=== PATIENT | male | born 1980 | race Caucasian/White ===

== ENCOUNTER 2021-02-16 19:00 | Outpatient (CLI) | payer BC | END 2021-02-16 19:01 | disposition home or self-care (01) | LOC: SLEEPLAB 19:00 | PROVIDERS: ATTEND Family Medicine | DX: G47.33 Obstructive sleep apnea (adult) (pediatric) (principal); R53.83 Other fatigue; G47.00 Insomnia, unspecified; R06.83 Snoring; G47.10 Hypersomnia, unspecified; I10 Essential (primary) hypertension; E66.9 Obesity, unspecified; Z68.41 Body mass index [BMI] 40.0-44.9, adult | CPT/HCPCS: 95810 ==

== ENCOUNTER 2021-03-20 19:00 | Outpatient (CLI) | payer BC | END 2021-03-20 19:01 | disposition home or self-care (01) | LOC: SLEEPLAB 19:00 | PROVIDERS: ATTEND Family Medicine | DX: G47.33 Obstructive sleep apnea (adult) (pediatric) (principal); R53.83 Other fatigue; G47.10 Hypersomnia, unspecified; I10 Essential (primary) hypertension; R06.83 Snoring; E66.9 Obesity, unspecified; Z68.41 Body mass index [BMI] 40.0-44.9, adult | CPT/HCPCS: 95811 ==

== ENCOUNTER 2022-05-15 15:17 | Outpatient (CLI) | payer BC ==
[2022-05-15 17:55] LABS: #Eosinphils 0.3 10x3/uL (0.0-0.5); #Monocytes 0.3 10x3/uL (0.0-1.1); #Neutrophils 1.6 10x3/uL (1.5-8.4); %Basophils 1.1 % (0.0-2.0); %Lymphocytes 18.6 % (18.0-47.0); %Monocytes 10.6 % (0.0-10.0); %Neutrophils 57.7 % (40.0-75.0); Hemoglobin 11.6 g/dL (13.5-17.5); Mean Corpuscular HGB CONC 33.6 g/dL (32.0-36.0); Mean Corpuscular Hemoglobin 30.2 pg (27.0-33.0); Mean Corpuscular Volume 89.8 fl (81.2-95.1); Mean Platelet Volume 12.1 fl (7.4-10.4); Platelet Count 45 10x3/uL (150-450); RBC Distribution Width 14.8 % (11.5-14.5); Red Blood Cell (RBC) Count 3.84 10x6/uL (4.32-5.72); White Blood Cell (WBC) Count 2.7 10x3/uL (3.5-10.5)
[2022-05-15 18:02] LABS: Anion Gap 10 mmol/L (10-20); BUN (Urea Nitrogen) 12 mg/dL (8.9-20.6); Calc. Creatinine Clearance 0 mL/min (70-130); Calcium 8.1 mg/dL (7.8-10.44); Carbon Dioxide 25 mmol/L (22-29); Chloride 107 mmol/L (98-107); Estimated GFR 78; Glucose 108 mg/dL (70-105); Potassium 4.1 mmol/L (3.5-5.1); Sodium 138 mmol/L (136-145)
== END 2022-05-15 15:18 | disposition home or self-care (01) ==
LOC: LABBT 15:17
PROVIDERS: ATTEND Surgery
DX: Z01.818 Encounter for other preprocedural examination (principal); K43.9 Ventral hernia without obstruction or gangrene
CPT/HCPCS: 80048; 85025; 93005; 93010

== ENCOUNTER 2022-05-20 07:18 | Day surgery (SDC) | payer BC ==
[2022-05-19 14:04] VITALS: BMI 41.5
== END 2022-05-20 08:34 | disposition home or self-care (01) ==
LOC: SDC 07:18
PROVIDERS: ATTEND Surgery
DX: K42.9 Umbilical hernia without obstruction or gangrene (principal); D69.6 Thrombocytopenia, unspecified; E78.5 Hyperlipidemia, unspecified; J45.20 Mild intermittent asthma, uncomplicated; K21.9 Gastro-esophageal reflux disease without esophagitis; F17.290 Nicotine dependence, other tobacco product, uncomplicated; E66.9 Obesity, unspecified; Z68.41 Body mass index [BMI] 40.0-44.9, adult; Z53.09 Procedure and treatment not carried out because of other contraindication; Z79.01 Long term (current) use of anticoagulants; Z79.84 Long term (current) use of oral hypoglycemic drugs; Z79.899 Other long term (current) drug therapy; Z91.011 Allergy to milk products

== ENCOUNTER 2022-07-15 08:14 | Day surgery (SDC) | payer BC ==
[2022-07-15] MEDS ORDERED: diphenhydrAMINE 25 MG CAP PO SCH (08:30)
[2022-07-15] MEDS ORDERED: Acetaminophen 500 MG TAB PO SCH (08:30)
[2022-07-15] MEDS ORDERED: Acetaminophen 500 MG TAB ONE (08:31)
[2022-07-15] MEDS ORDERED: diphenhydrAMINE 25 MG CAP ONE (08:31)
[2022-07-15 16:05] VITALS: BP 143/78; TEMP 98.3
== END 2022-07-15 10:58 | disposition home or self-care (01) ==
LOC: ONC/OP 08:14
PROVIDERS: ATTEND Internal Medicine Hematology & Oncology
PROC: 30233R1 Transfusion of Nonautologous Platelets into Peripheral Vein, Percutaneous Approach (ICD-10-PCS; principal; 2022-07-15)
DX: D69.6 Thrombocytopenia, unspecified (principal); D64.9 Anemia, unspecified; Z91.011 Allergy to milk products
CPT/HCPCS: 36430; 86850; 86900; 86901; P9035

== ENCOUNTER 2022-07-15 11:07 | Day surgery (SDC) | payer BC ==
[2022-07-11 15:33] VITALS: BMI 40.7
[2022-07-15] MEDS ORDERED: Bupivacaine/Epinephrine 0.25% 30 ML VIAL ONE (12:40)
[2022-07-15] MEDS ORDERED: fentaNYL PF 100 MCG/2 ML SYRINGE ONE (12:41)
[2022-07-15] MEDS ORDERED: PROPOFOL 20 ML ONE (12:41)
[2022-07-15] MEDS ORDERED: SUGAMMADEX SODIUM 200 MG/2 ML VIAL ONE (12:41)
[2022-07-15] MEDS ORDERED: CEFAZOLIN 2 GM VIAL ONE (12:48)
[2022-07-15] MEDS ORDERED: Sodium Chloride 0.9% 100 ML ONE (12:48)
[2022-07-15] MEDS ORDERED: PROPOFOL 200 MG/20 ML VIAL ONE (13:04)
[2022-07-15] MEDS ORDERED: Lidocaine 1% PF 5 ML VIAL ONE (13:04)
[2022-07-15] MEDS ORDERED: Dexamethasone 20 MG/5 ML VIAL ONE (13:04)
[2022-07-15] MEDS ORDERED: Albuterol HFA (OR) 200 PUFF INH ONE (13:04)
[2022-07-15] MEDS ORDERED: ePHEDrine 50 MG/ML VIAL ONE (13:04)
[2022-07-15] MEDS ORDERED: Ondansetron PF 4 MG/2 ML Vial ONE (13:04)
[2022-07-15] MEDS ORDERED: Rocuronium Bromide 10 MG/ML (10ML VIAL) ONE (13:04)
[2022-07-15] MEDS ORDERED: Glycopyrrolate 0.2 MG/ML 5 ML SYRINGE ONE (13:04)
[2022-07-15] MEDS ORDERED: NEOSTIGMINE 3 MG/3 ML SYR 3 MG/3 ML SYRINGE ONE (13:04)
[2022-07-15 13:15] LABS: #Eosinphils 0.3 thou/uL (0.0-0.7); #Lymphocytes 0.5 thou/uL (1.20-3.40); #Monocytes 0.2 thou/uL (0.11-0.59); #Neutrophils 1.2 thou/uL (1.40-6.50); %Eosinophils 12.4 % (0.0-10.0); %Lymphocytes 21.2 % (21.0-51.0); %Monocytes 9.1 % (0.0-10.0); %Neutrophils 57.2 % (42.0-75.0); Hemoglobin 11.3 g/dL (14.0-18.0); Mean Corpuscular HGB CONC 33.9 g/dL (32.0-36.0); Mean Corpuscular Hemoglobin 30.8 pg (27.0-31.0); Mean Corpuscular Volume 90.9 fl (78.0-98.0); Mean Platelet Volume 9.8 fL (7.4-10.4); Platelet Count 42 10x3/uL (130-400); RBC Distribution Width 13.9 % (11.5-14.5); Red Blood Cell (RBC) Count 3.67 mill/uL (4.70-6.10); White Blood Cell (WBC) Count 2.1 10x3/uL (4.8-10.8)
[2022-07-15 13:38] LABS: Anion Gap 8 mmol/L (10-20); BUN (Urea Nitrogen) 14 mg/dL (8.9-20.6); Calc. Creatinine Clearance 132 mL/min (70-130); Calcium 8.4 mg/dL (7.8-10.44); Carbon Dioxide 30 mmol/L (22-29); Chloride 106 mmol/L (98-107); Estimated GFR 67; Glucose 91 mg/dL (70-105); Potassium 4.4 mmol/L (3.5-5.1); Sodium 140 mmol/L (136-145)
[2022-07-15] MEDS ORDERED: FENTANYL 50 MCG/ML 1 ML VIAL ONE ×3 (14:52→15:13)
[2022-07-15] MEDS ORDERED: HYDROcodone/Acetaminophen 5/325 mg Tablet ONE (16:13)
== END 2022-07-15 16:23 | disposition home or self-care (01) ==
LOC: SDC 11:07
PROVIDERS: ATTEND Surgery
PROC: 8E0W4CZ Robotic Assisted Procedure of Trunk Region, Percutaneous Endoscopic Approach (ICD-10-PCS; principal; 2022-07-15)
PROC: 0WUF4JZ Supplement Abdominal Wall with Synthetic Substitute, Percutaneous Endoscopic Approach (ICD-10-PCS; principal; 2022-07-15)
DX: K43.9 Ventral hernia without obstruction or gangrene (principal); D69.6 Thrombocytopenia, unspecified; E78.5 Hyperlipidemia, unspecified; J45.20 Mild intermittent asthma, uncomplicated; F17.290 Nicotine dependence, other tobacco product, uncomplicated; E66.9 Obesity, unspecified; Z68.41 Body mass index [BMI] 40.0-44.9, adult; Z86.718 Personal history of other venous thrombosis and embolism; Z79.84 Long term (current) use of oral hypoglycemic drugs; Z79.899 Other long term (current) drug therapy; Z91.011 Allergy to milk products
CPT/HCPCS: 36430; 80048; 85025; 86850; 86900; 86901; C1781; J1100; J2405; J2704; J3010; J3490; P9035

== ENCOUNTER 2022-12-08 12:17 | Inpatient (IN) | payer BC ==
[~2022-12-08 12:17] MED LIST: Iopamidol-370 76% 500 ML MDV (1 ML CHARGE) ONE
[2022-12-08 12:45] LABS: #Basophils 0.1 thou/uL (0.0-0.2); #Eosinphils 0.6 thou/uL (0.0-0.7); #Monocytes 0.6 thou/uL (0.11-0.59); #Neutrophils 5.8 thou/uL (1.40-6.50); %Basophils 1.4 % (0.0-1.0); %Eosinophils 7.4 % (0.0-10.0); %Monocytes 7.3 % (0.0-10.0); %Neutrophils 67.6 % (42.0-75.0); Hematocrit 37.4 % (42.0-52.0); Hemoglobin 12.1 g/dL (14.0-18.0); Mean Corpuscular HGB CONC 32.4 g/dL (32.0-36.0); Mean Corpuscular Hemoglobin 28.7 pg (27.0-31.0); Mean Corpuscular Volume 88.6 fl (78.0-98.0); Mean Platelet Volume 9.9 fL (7.4-10.4); RBC Distribution Width 16.4 % (11.5-14.5); Red Blood Cell (RBC) Count 4.22 mill/uL (4.70-6.10); White Blood Cell (WBC) Count 8.6 10x3/uL (4.8-10.8)
[2022-12-08 12:47] LABS: Platelet Count 56 10x3/uL (130-400)
[2022-12-08 13:05] LABS: ALT (SGPT) 25 U/L (8-55); AST (SGOT) 30 U/L (5-34); Albumin 3.2 g/dL (3.5-5.0); Alkaline Phosphatase 81 U/L (40-110); Anion Gap 14 mmol/L (10-20); BUN (Urea Nitrogen) 21 mg/dL (8.9-20.6); Bilirubin, Total 1.5 mg/dL (0.2-1.2); Calc. Creatinine Clearance 0 mL/min (70-130); Carbon Dioxide 29 mmol/L (22-29); Chloride 99 mmol/L (98-107); Estimated GFR 38; Globulin 2.7 g/dL (2.4-3.5); Glucose 131 mg/dL (70-105); Potassium 4.9 mmol/L (3.5-5.1); Protein, Total 5.9 g/dL (6.0-8.3); Sodium 137 mmol/L (136-145)
[2022-12-08] MEDS ORDERED: cefTRIAXone (ROCEPHIN) 2 GM VIAL ONE (13:06)
[2022-12-08 13:28] LABS: SARS-CoV-2 NAA Rapid Test Not Detected (NotDetected)
[2022-12-08 13:37] LABS: CKMB 3.3 ng/mL (0-6.6)
[2022-12-08] MEDS ORDERED: Aspirin Chewable 81 MG TAB ONE (13:41)
[2022-12-08 13:44] LABS: INR-International Normal Ratio 1.5; Prothrombin Time 18.7 sec (12.0-14.7)
[2022-12-08 13:45] LABS: PTT 32.4 sec (22.9-36.1)
[2022-12-08] MEDS ORDERED: Azithromycin 500 MG VIAL ONE (14:32)
[2022-12-08] MEDS ORDERED: Dextrose 50% Abboject 50 ML SYRINGE SLOW IVP PRN (14:44)
[2022-12-08] MEDS ORDERED: Dextrose 5% in Water 1,000 ML IV PRN (14:44)
[2022-12-08] MEDS ORDERED: HumaLOG 300 UNITS/3 ML VIAL SC PRN (14:44)
[2022-12-08] MEDS ORDERED: Glucagon 1 MG/ML KIT IM PRN (14:44)
[2022-12-08] MEDS ORDERED: Furosemide 40 MG/4 ML VIAL SLOW IVP SCH (14:45)
[2022-12-08 16:15] VITALS: BMI 44.8
[2022-12-08] MEDS: Cefepime 1 GM in Sodium Chloride 0.9% 100 ML IVPB SCH (16:24)
[2022-12-08 17:36] LABS: Troponin I 0.397 ng/mL (< 0.028)
[2022-12-08 20:07] LABS: Critical Call Chem Troponin I RESULT DECREASING; Troponin I 0.331 ng/mL (< 0.028)
[2022-12-08] MEDS: Furosemide 40 MG/4 ML VIAL SLOW IVP SCH (20:39)
[2022-12-08] MEDS: Atorvastatin Calcium 10 MG TAB PO SCH (20:39)
[2022-12-08] MEDS: Cholestyramine/Aspartame 4 gm Packet PO SCH (21:44)
[2022-12-09] MEDS: Cefepime 1 GM in Sodium Chloride 0.9% 100 ML IVPB SCH (05:26)
[2022-12-09 06:11] LABS: #Basophils 0.1 thou/uL (0.0-0.2); #Eosinphils 1.1 thou/uL (0.0-0.7); #Monocytes 0.5 thou/uL (0.11-0.59); #Neutrophils 2.4 thou/uL (1.40-6.50); %Basophils 1.4 % (0.0-1.0); %Eosinophils 22.8 % (0.0-10.0); %Lymphocytes 17.8 % (21.0-51.0); %Monocytes 9.5 % (0.0-10.0); %Neutrophils 48.3 % (42.0-75.0); Hematocrit 33.8 % (42.0-52.0); Hemoglobin 10.7 g/dL (14.0-18.0); Mean Corpuscular HGB CONC 31.7 g/dL (32.0-36.0); Mean Corpuscular Hemoglobin 28.8 pg (27.0-31.0); Mean Corpuscular Volume 90.9 fl (78.0-98.0); Mean Platelet Volume 10.3 fL (7.4-10.4); Red Blood Cell (RBC) Count 3.72 mill/uL (4.70-6.10)
[2022-12-09 06:15] LABS: Platelet Count 36 10x3/uL (130-400)
[2022-12-09 06:34] LABS: Anion Gap 12 mmol/L (10-20); BUN (Urea Nitrogen) 23 mg/dL (8.9-20.6); Calc. Creatinine Clearance 88 mL/min (70-130); Calcium 8.1 mg/dL (7.8-10.44); Carbon Dioxide 30 mmol/L (22-29); Chloride 98 mmol/L (98-107); Estimated GFR 37; Glucose 111 mg/dL (70-105); Magnesium 1.8 mg/dL (1.6-2.6); Potassium 4.4 mmol/L (3.5-5.1); Sodium 136 mmol/L (136-145)
[2022-12-09] MEDS: Lisinopril 10 MG TAB PO SCH (08:47)
[2022-12-09] MEDS: Furosemide 40 MG/4 ML VIAL SLOW IVP SCH ×2 (08:47→20:39)
[2022-12-09] MEDS: Ferrous Sulfate 325 MG TAB PO SCH (08:48)
[2022-12-09] MEDS: Cholecalciferol 1,000 UNITS (25 MCG) TAB PO SCH (08:48)
[2022-12-09] MEDS: Empagliflozin 10 MG TAB PO SCH (08:48)
[2022-12-09] MEDS: Cholestyramine/Aspartame 4 gm Packet PO SCH ×2 (08:48→22:42)
[2022-12-09] MEDS ORDERED: Albuterol 200 PUFF (6.7GM INHALER) INH PRN (12:36)
[2022-12-09] MEDS ORDERED: Aspirin 81 mg Enteric Coated Tablet PO SCH (12:45)
[2022-12-09] MEDS: Cefepime 2 GM in Sodium Chloride 0.9% 100 ML IVPB SCH (15:58)
[2022-12-09] MEDS: Atorvastatin Calcium 10 MG TAB PO SCH (20:39)
[2022-12-10] MEDS: Cefepime 2 GM in Sodium Chloride 0.9% 100 ML IVPB SCH ×2 (04:54→16:52)
[2022-12-10 05:15] LABS: Anion Gap 16 mmol/L (10-20); BUN (Urea Nitrogen) 22 mg/dL (8.9-20.6); Calc. Creatinine Clearance 100 mL/min (70-130); Carbon Dioxide 29 mmol/L (22-29); Chloride 96 mmol/L (98-107); Estimated GFR 44; Glucose 106 mg/dL (70-105); Potassium 4.2 mmol/L (3.5-5.1); Sodium 137 mmol/L (136-145)
[2022-12-10] MEDS: Empagliflozin 10 MG TAB PO SCH (09:27)
[2022-12-10] MEDS: Lisinopril 10 MG TAB PO SCH (09:27)
[2022-12-10] MEDS: Cholecalciferol 1,000 UNITS (25 MCG) TAB PO SCH (09:27)
[2022-12-10] MEDS: Potassium Chloride 10 MEQ TAB PO SCH (09:27)
[2022-12-10] MEDS: Cholestyramine/Aspartame 4 gm Packet PO SCH ×2 (09:28→22:26)
[2022-12-10] MEDS: Furosemide 40 MG/4 ML VIAL SLOW IVP SCH ×2 (09:28→20:43)
[2022-12-10] MEDS: Ferrous Sulfate 325 MG TAB PO SCH (09:28)
[2022-12-10] MEDS: Aspirin 81 mg Enteric Coated Tablet PO SCH (09:28)
[2022-12-10] MEDS ORDERED: traMADol HCl 50 MG TAB PO PRN (12:10)
[2022-12-10] MEDS: Atorvastatin Calcium 10 MG TAB PO SCH (20:43)
[2022-12-11 04:50] LABS: Hematocrit 32.7 % (42.0-52.0); Hemoglobin 10.5 g/dL (14.0-18.0); Manual Diff?? YES; Mean Corpuscular HGB CONC 32.1 g/dL (32.0-36.0); Mean Corpuscular Hemoglobin 29.1 pg (27.0-31.0); Mean Corpuscular Volume 90.6 fl (78.0-98.0); Mean Platelet Volume 11.7 fL (7.4-10.4); RBC Distribution Width 15.6 % (11.5-14.5); Red Blood Cell (RBC) Count 3.61 mill/uL (4.70-6.10); White Blood Cell (WBC) Count 3.6 10x3/uL (4.8-10.8)
[2022-12-11] MEDS: Cefepime 2 GM in Sodium Chloride 0.9% 100 ML IVPB SCH ×2 (04:54→17:41)
[2022-12-11 05:05] LABS: Platelet Count 43 10x3/uL (130-400)
[2022-12-11 05:06] LABS: Delete Auto Diff?? YES
[2022-12-11 05:14] LABS: Anion Gap 11 mmol/L (10-20); BUN (Urea Nitrogen) 22 mg/dL (8.9-20.6); Calc. Creatinine Clearance 105 mL/min (70-130); Calcium 8.1 mg/dL (7.8-10.44); Carbon Dioxide 32 mmol/L (22-29); Chloride 98 mmol/L (98-107); Estimated GFR 46; Glucose 93 mg/dL (70-105); Potassium 3.7 mmol/L (3.5-5.1); Sodium 137 mmol/L (136-145)
[2022-12-11 06:23] LABS: Anisocytosis SLIGHT = 6-15 cells HPF (0-5); Eosinophils 35 % (0-10); Hypochromia SLIGHT = 6-15 cells HPF (0-5); Large Platelets 3.2 % (0-5); Lymphocytes 7 % (21-51); Monocytes 6 % (0-10); Neutrophil 47 % (42-75); Platelet Adequacy Comment Significant decrease; Polychromasia SLIGHT = 2-3 cells HPF (0-2); Total Cell Count 94
[2022-12-11] MEDS ORDERED: Non-Formulary Item 1 EACH (Metformin Hcl [Metformin Er Gastric] 500 MG Tabergr24h) PO SCH (09:00)
[2022-12-11] MEDS: Empagliflozin 10 MG TAB PO SCH (09:08)
[2022-12-11] MEDS: Ferrous Sulfate 325 MG TAB PO SCH (09:08)
[2022-12-11] MEDS: Aspirin 81 mg Enteric Coated Tablet PO SCH (09:08)
[2022-12-11] MEDS: metFORMIN XR 500 MG TAB PO SCH (09:08)
[2022-12-11] MEDS: Lisinopril 10 MG TAB PO SCH (09:09)
[2022-12-11] MEDS: Cholecalciferol 1,000 UNITS (25 MCG) TAB PO SCH (09:10)
[2022-12-11] MEDS: Furosemide 40 MG/4 ML VIAL SLOW IVP SCH ×2 (09:10→21:08)
[2022-12-11] MEDS: Potassium Chloride 10 MEQ TAB PO SCH (09:10)
[2022-12-11] MEDS: Cholestyramine/Aspartame 4 gm Packet PO SCH ×2 (09:11→22:55)
[2022-12-11] MEDS ORDERED: Ketorolac Tromethamine 30 MG/ML VIAL IVP PRN (10:51)
[2022-12-11] MEDS: Atorvastatin Calcium 10 MG TAB PO SCH (21:08)
[2022-12-12 04:25] LABS: Hematocrit 33.2 % (42.0-52.0); Hemoglobin 10.6 g/dL (14.0-18.0)
[2022-12-12 04:41] LABS: Platelet Count 41 10x3/uL (130-400)
[2022-12-12 04:50] LABS: Anion Gap 12 mmol/L (10-20); BUN (Urea Nitrogen) 21 mg/dL (8.9-20.6); Calc. Creatinine Clearance 106 mL/min (70-130); Calcium 8.2 mg/dL (7.8-10.44); Carbon Dioxide 31 mmol/L (22-29); Chloride 98 mmol/L (98-107); Estimated GFR 48; Glucose 100 mg/dL (70-105); Potassium 3.8 mmol/L (3.5-5.1); Sodium 137 mmol/L (136-145)
[2022-12-12] MEDS: Cefepime 2 GM in Sodium Chloride 0.9% 100 ML IVPB SCH (05:17)
[2022-12-12] MEDS: Cholecalciferol 1,000 UNITS (25 MCG) TAB PO SCH (09:20)
[2022-12-12] MEDS: Empagliflozin 10 MG TAB PO SCH (09:21)
[2022-12-12] MEDS: Potassium Chloride 10 MEQ TAB PO SCH (09:21)
[2022-12-12] MEDS: Ferrous Sulfate 325 MG TAB PO SCH (09:21)
[2022-12-12] MEDS: Cholestyramine/Aspartame 4 gm Packet PO SCH ×2 (09:22→22:59)
[2022-12-12] MEDS: Lisinopril 10 MG TAB PO SCH (09:22)
[2022-12-12] MEDS: metFORMIN XR 500 MG TAB PO SCH (09:22)
[2022-12-12] MEDS: Aspirin 81 mg Enteric Coated Tablet PO SCH (09:22)
[2022-12-12] MEDS: Furosemide 40 MG/4 ML VIAL SLOW IVP SCH ×2 (09:22→21:23)
[2022-12-12] MEDS: Atorvastatin Calcium 10 MG TAB PO SCH (21:23)
[2022-12-13] MEDS: Ferrous Sulfate 325 MG TAB PO SCH (08:42)
[2022-12-13] MEDS: Empagliflozin 10 MG TAB PO SCH (08:42)
[2022-12-13] MEDS: Aspirin 81 mg Enteric Coated Tablet PO SCH (08:42)
[2022-12-13] MEDS: Potassium Chloride 10 MEQ TAB PO SCH (08:42)
[2022-12-13] MEDS: Cholecalciferol 1,000 UNITS (25 MCG) TAB PO SCH (08:42)
[2022-12-13] MEDS: Furosemide 40 MG/4 ML VIAL SLOW IVP SCH (08:42)
[2022-12-13] MEDS: Lisinopril 10 MG TAB PO SCH (08:43)
[2022-12-13] MEDS: metFORMIN XR 500 MG TAB PO SCH (08:43)
[2022-12-13] MEDS: Cholestyramine/Aspartame 4 gm Packet PO SCH (08:44)
[2022-12-13 13:49] VITALS: BP 134/90; TEMP 98
== END 2022-12-13 13:47 | disposition home or self-care (01) | DRG 280 ==
LOC: ERS 12:17 → 2NO 13:46
PROVIDERS: ADMIT Internal Medicine; ATTEND Internal Medicine
PROC: 5A09357 Assistance with Respiratory Ventilation, Less than 24 Consecutive Hours, Continuous Positive Airway Pressure (ICD-10-PCS; principal; 2022-12-08)
DX: I13.0 Hypertensive heart and chronic kidney disease with heart failure and stage 1 through stage 4 chronic kidney disease, or unspecified chronic kidney disease (principal); I21.A1 Myocardial infarction type 2; I50.43 Acute on chronic combined systolic (congestive) and diastolic (congestive) heart failure; J96.01 Acute respiratory failure with hypoxia; N17.9 Acute kidney failure, unspecified; Z68.41 Body mass index [BMI] 40.0-44.9, adult; E78.5 Hyperlipidemia, unspecified; K21.9 Gastro-esophageal reflux disease without esophagitis; F17.220 Nicotine dependence, chewing tobacco, uncomplicated; J45.909 Unspecified asthma, uncomplicated; E66.01 Morbid (severe) obesity due to excess calories; G47.33 Obstructive sleep apnea (adult) (pediatric); D69.6 Thrombocytopenia, unspecified; N18.30 Chronic kidney disease, stage 3 unspecified; E11.22 Type 2 diabetes mellitus with diabetic chronic kidney disease; D63.1 Anemia in chronic kidney disease; I27.20 Pulmonary hypertension, unspecified; Z20.822 Contact with and (suspected) exposure to COVID-19; Z88.8 Allergy status to other drugs, medicaments and biological substances; Z91.011 Allergy to milk products; Z79.51 Long term (current) use of inhaled steroids; Z98.890 Other specified postprocedural states; Z79.84 Long term (current) use of oral hypoglycemic drugs; Z79.899 Other long term (current) drug therapy
CPT/HCPCS: 36415; 36416; 71045; 71275; 76770; 80048; 80053; 82553; 83605; 83735; 83880; 84484; 85014; 85018; 85025; 85049; 85610; 85730; 87040; 93005; 93306; 96365; 96367; 96372; J0456; J0692; J0696; J1650; J1940; J3490; Q9967

== ENCOUNTER 2023-01-19 19:11 | Inpatient (IN) | payer BC ==
[2023-01-19] MEDS ORDERED: dilTIAZem 125 MG/25 ML SDV ONE ×2 (19:37→20:38)
[2023-01-19 20:01] LABS: #Eosinphils 0.1 thou/uL (0.0-0.7); #Monocytes 0.2 thou/uL (0.11-0.59); #Neutrophils 1.3 thou/uL (1.40-6.50); %Basophils 0.9 % (0.0-1.0); %Eosinophils 6.5 % (0.0-10.0); %Monocytes 8.9 % (0.0-10.0); %Neutrophils 62.7 % (42.0-75.0); Hematocrit 33.7 % (42.0-52.0); Hemoglobin 11.3 g/dL (14.0-18.0); Mean Corpuscular HGB CONC 33.5 g/dL (32.0-36.0); Mean Corpuscular Hemoglobin 29.7 pg (27.0-31.0); Mean Corpuscular Volume 88.7 fl (78.0-98.0); RBC Distribution Width 15.7 % (11.5-14.5); White Blood Cell (WBC) Count 2.1 10x3/uL (4.8-10.8)
[2023-01-19 20:02] LABS: Platelet Count 30 10x3/uL (130-400)
[2023-01-19 20:10] LABS: INR-International Normal Ratio 1.4; PTT 31.1 sec (22.9-36.1); Prothrombin Time 17.2 sec (12.0-14.7)
[2023-01-19 20:16] LABS: Troponin I Less than 0.010 ng/mL (< 0.028)
[2023-01-19 20:24] LABS: ALT (SGPT) 17 U/L (8-55); AST (SGOT) 17 U/L (5-34); Acetaminophen Less than 10 mcg/mL (10.0-30.0); Albumin 3.7 g/dL (3.5-5.0); Alcohol Less than 10.0 mg/dL (Less than 10); Alkaline Phosphatase 67 U/L (40-110); Anion Gap 14 mmol/L (10-20); BUN (Urea Nitrogen) 14 mg/dL (8.9-20.6); Bilirubin, Total 0.9 mg/dL (0.2-1.2); Calc. Creatinine Clearance 0 mL/min (70-130); Calcium 8.7 mg/dL (7.8-10.44); Carbon Dioxide 23 mmol/L (22-29); Chloride 105 mmol/L (98-107); Estimated GFR 53; Globulin 3.1 g/dL (2.4-3.5); Glucose 144 mg/dL (70-105); Magnesium 1.9 mg/dL (1.6-2.6); Potassium 3.9 mmol/L (3.5-5.1); Protein, Total 6.8 g/dL (6.0-8.3); Salicylate Less than 8.0 mg/dL (15.0-30.0); Sodium 138 mmol/L (136-145)
[2023-01-19 20:59] LABS: Bacteria/HPF None Seen HPF (None Seen); Bilirubin Negative (Negative); Blood, Urine 3+ (Negative); CAUTI Indications for Culture Dysuria,urgency,freq; Clarity Clear (Clear); Glucose, Urine (Dipstick) >=1000 mg/dL (Negative); Ketone, Urine Negative (Negative); Leukocyte Negative Leu/uL (Negative); Nitrite Negative (Negative); Protein, Urine (Dipstick) 70 mg/dL (Neg-Trace); Specific Gravity, Urine 1.007 (1.002-1.036); Squamous Epithelial None Seen HPF (0-3); Urobilinogen Normal mg/dL (Less than 2); WBC/HPF 0-3 HPF (0-3); pH, Urine 6.5 (5.0-9.0)
[2023-01-19 21:00] LABS: Urine Culture Reflex No No
[2023-01-19 21:05] LABS: Amphetamine Not Detected (NotDetected); Barbiturates Screen Not Detected (NotDetected); Benzodiazepine Screen Not Detected (NotDetected); Cocaine Metabolite Screen Not Detected (NotDetected); Methadone Not Detected (NotDetected); Methamphetamine Not Detected (NotDetected); Opiate Screen Not Detected (NotDetected); Oxycodone Screen Not Detected (NotDetected); Phencyclidine (PCP) Not Detected (NotDetected); THC/Cannabinoid Screen Not Detected (NotDetected); Tricyclic Screen Not Detected (NotDetected)
[2023-01-19] MEDS ORDERED: Acetaminophen 325 MG TAB PO PRN (21:35)
[2023-01-19] MEDS ORDERED: Glucagon 1 MG/ML KIT IM PRN (21:35)
[2023-01-19] MEDS ORDERED: HumaLOG 300 UNITS/3 ML VIAL SC PRN ×2 (21:35)
[2023-01-19] MEDS ORDERED: Dextrose 50% Abboject 50 ML SYRINGE SLOW IVP PRN (21:35)
[2023-01-19] MEDS ORDERED: Dextrose 5% in Water 1,000 ML IV PRN (21:35)
[2023-01-19] MEDS ORDERED: dilTIAZem 125 MG in Sodium Chloride 0.9% 100 ML IVPB SCH ×2 (21:45→22:45)
[2023-01-19] MEDS ORDERED: Nicotine 7 MG PATCH TD PRN (22:21)
[2023-01-19 22:47] LABS: Troponin I Less than 0.010 ng/mL (< 0.028)
[2023-01-19 23:39] VITALS: BMI 39.6
[2023-01-20] MEDS: Cholestyramine/Aspartame 4 gm Packet PO SCH ×3 (01:39→21:33)
[2023-01-20 01:57] LABS: Troponin I Less than 0.010 ng/mL (< 0.028)
[2023-01-20 04:56] LABS: #Eosinphils 0.2 thou/uL (0.0-0.7); #Monocytes 0.2 thou/uL (0.11-0.59); #Neutrophils 1.1 thou/uL (1.40-6.50); %Basophils 1.6 % (0.0-1.0); %Eosinophils 8.5 % (0.0-10.0); %Lymphocytes 23.8 % (21.0-51.0); %Monocytes 10.6 % (0.0-10.0); %Neutrophils 55.5 % (42.0-75.0); Hematocrit 32.2 % (42.0-52.0); Hemoglobin 10.5 g/dL (14.0-18.0); Mean Corpuscular HGB CONC 32.6 g/dL (32.0-36.0); Mean Corpuscular Hemoglobin 29.4 pg (27.0-31.0); Mean Corpuscular Volume 90.2 fl (78.0-98.0); Mean Platelet Volume 11.3 fL (7.4-10.4); RBC Distribution Width 15.6 % (11.5-14.5); Red Blood Cell (RBC) Count 3.57 mill/uL (4.70-6.10); White Blood Cell (WBC) Count 1.9 10x3/uL (4.8-10.8)
[2023-01-20 05:01] LABS: Platelet Count 27 10x3/uL (130-400)
[2023-01-20 05:21] LABS: Anion Gap 12 mmol/L (10-20); BUN (Urea Nitrogen) 15 mg/dL (8.9-20.6); Calc. Creatinine Clearance 109 mL/min (70-130); Calcium 8.5 mg/dL (7.8-10.44); Carbon Dioxide 25 mmol/L (22-29); Chloride 108 mmol/L (98-107); Estimated GFR 56; Glucose 119 mg/dL (70-105); Potassium 4.2 mmol/L (3.5-5.1); Sodium 141 mmol/L (136-145)
[2023-01-20] MEDS ORDERED: Atorvastatin Calcium 10 MG TAB PO SCH (21:00)
[2023-01-21] MEDS ORDERED: Ferrous Sulfate 325 MG TAB PO SCH (08:00)
[2023-01-21] MEDS: Cholestyramine/Aspartame 4 gm Packet PO SCH (08:50)
[2023-01-21] MEDS ORDERED: Cholecalciferol 1,000 UNITS (25 MCG) TAB PO SCH ×2 (09:00)
[2023-01-21] MEDS ORDERED: Non-Formulary Item 1 EACH (Ferrous Sulfate [Ferosul] 325 MG Tablet) PO SCH (09:00)
[2023-01-21] MEDS ORDERED: dilTIAZem SR 90 MG CAP PO SCH ×2 (10:45→21:00)
[2023-01-21 16:33] VITALS: BP 157/83; TEMP 97.9
== END 2023-01-21 18:05 | disposition home or self-care (01) | DRG 309 ==
LOC: ERS 19:11 → 2NO 21:09
PROVIDERS: ADMIT Family Medicine; ATTEND Emergency Medicine
DX: I48.91 Unspecified atrial fibrillation (principal); D61.818 Other pancytopenia; I13.0 Hypertensive heart and chronic kidney disease with heart failure and stage 1 through stage 4 chronic kidney disease, or unspecified chronic kidney disease; I50.32 Chronic diastolic (congestive) heart failure; E11.22 Type 2 diabetes mellitus with diabetic chronic kidney disease; N18.30 Chronic kidney disease, stage 3 unspecified; K21.9 Gastro-esophageal reflux disease without esophagitis; J45.909 Unspecified asthma, uncomplicated; K58.9 Irritable bowel syndrome, unspecified; F17.220 Nicotine dependence, chewing tobacco, uncomplicated; E78.5 Hyperlipidemia, unspecified; D69.6 Thrombocytopenia, unspecified; G47.33 Obstructive sleep apnea (adult) (pediatric); Q98.4 Klinefelter syndrome, unspecified; R31.29 Other microscopic hematuria; F19.10 Other psychoactive substance abuse, uncomplicated; I27.20 Pulmonary hypertension, unspecified; E66.9 Obesity, unspecified; Z91.011 Allergy to milk products; Z79.899 Other long term (current) drug therapy; Z68.39 Body mass index [BMI] 39.0-39.9, adult
CPT/HCPCS: 36415; 36416; 71045; 76705; 80048; 80306; 80307; 81001; 83605; 83735; 84443; 84484; 85025; 85610; 85730; 93005; 96361; 96365; 96376; J3490

== ENCOUNTER 2023-04-10 09:29 | Emergency (ER) | payer BC ==
[2023-04-10 10:14] LABS: #Eosinphils 0.3 thou/uL (0.0-0.7); #Monocytes 0.2 thou/uL (0.11-0.59); #Neutrophils 1.5 thou/uL (1.40-6.50); %Basophils 1.3 % (0.0-1.0); %Eosinophils 14.2 % (0.0-10.0); %Monocytes 6.3 % (0.0-10.0); %Neutrophils 62.8 % (42.0-75.0); Hematocrit 35.3 % (42.0-52.0); Hemoglobin 11.9 g/dL (14.0-18.0); Mean Corpuscular HGB CONC 33.7 g/dL (32.0-36.0); Mean Corpuscular Hemoglobin 30.3 pg (27.0-31.0); Mean Corpuscular Volume 89.8 fl (78.0-98.0); Mean Platelet Volume 12.3 fL (7.4-10.4); RBC Distribution Width 14.6 % (11.5-14.5); Red Blood Cell (RBC) Count 3.93 mill/uL (4.70-6.10); White Blood Cell (WBC) Count 2.4 10x3/uL (4.8-10.8)
[2023-04-10 10:23] LABS: Platelet Count 27 10x3/uL (130-400)
[2023-04-10 10:30] LABS: ALT (SGPT) 19 U/L (8-55); AST (SGOT) 19 U/L (5-34); Albumin 3.8 g/dL (3.5-5.0); Alkaline Phosphatase 80 U/L (40-110); Anion Gap 11 mmol/L (10-20); BUN (Urea Nitrogen) 18 mg/dL (8.9-20.6); Bilirubin, Total 1.2 mg/dL (0.2-1.2); Calc. Creatinine Clearance 0 mL/min (70-130); Calcium 8.6 mg/dL (7.8-10.44); Carbon Dioxide 27 mmol/L (22-29); Chloride 105 mmol/L (98-107); Estimated GFR 51; Globulin 3.2 g/dL (2.4-3.5); Glucose 113 mg/dL (70-105); Lipase 56 U/L (8-78); Potassium 4.5 mmol/L (3.5-5.1); Sodium 138 mmol/L (136-145)
[2023-04-10 10:34] LABS: Troponin I Less than 0.010 ng/mL (< 0.028)
== END 2023-04-10 13:24 | disposition home or self-care (01) ==
LOC: ERS 09:29
DX: R07.9 Chest pain, unspecified (principal); I10 Essential (primary) hypertension; E11.9 Type 2 diabetes mellitus without complications; K21.9 Gastro-esophageal reflux disease without esophagitis; F17.220 Nicotine dependence, chewing tobacco, uncomplicated; E78.5 Hyperlipidemia, unspecified; J45.909 Unspecified asthma, uncomplicated; Z79.899 Other long term (current) drug therapy
CPT/HCPCS: 71045; 80053; 83690; 83880; 84484; 85025; 93005

== ENCOUNTER 2023-06-26 08:12 | Day surgery (SDC) | payer BC ==
[2023-06-26 08:28] LABS: #Eosinphils 0.4 thou/uL (0.0-0.7); #Monocytes 0.2 thou/uL (0.11-0.59); #Neutrophils 1.5 thou/uL (1.40-6.50); %Basophils 1.4 % (0.0-1.0); %Eosinophils 15.8 % (0.0-10.0); %Lymphocytes 21.1 % (21.0-51.0); %Monocytes 8.6 % (0.0-10.0); %Neutrophils 53.1 % (42.0-75.0); Hematocrit 39.9 % (42.0-52.0); Hemoglobin 13.1 g/dL (14.0-18.0); Mean Corpuscular HGB CONC 32.8 g/dL (32.0-36.0); Mean Corpuscular Hemoglobin 29.8 pg (27.0-31.0); Mean Corpuscular Volume 90.9 fl (78.0-98.0); Mean Platelet Volume 11.7 fL (7.4-10.4); RBC Distribution Width 14.6 % (11.5-14.5); Red Blood Cell (RBC) Count 4.39 mill/uL (4.70-6.10); White Blood Cell (WBC) Count 2.8 10x3/uL (4.8-10.8)
[2023-06-26 08:29] LABS: Platelet Count 35 10x3/uL (130-400)
[2023-06-26 08:40] LABS: INR-International Normal Ratio 1.3; PTT 30.7 sec (22.9-36.1); Prothrombin Time 15.8 sec (12.0-14.7)
[2023-06-26] MEDS ORDERED: Lidocaine 1% PF 5 ML VIAL ONE (10:02)
== END 2023-06-26 12:00 | disposition home or self-care (01) ==
LOC: CT 08:12
PROVIDERS: ATTEND Internal Medicine Hematology & Oncology
PROC: 079T3ZX Drainage of Bone Marrow, Percutaneous Approach, Diagnostic (ICD-10-PCS; principal; 2023-06-26)
DX: D69.6 Thrombocytopenia, unspecified (principal); D73.3 Abscess of spleen; D61.818 Other pancytopenia; Z91.011 Allergy to milk products
CPT/HCPCS: 20225; 77002; 85025; 85097; 85610; 85730; 88184; 88237; 88305; 88311; 88313

== ENCOUNTER 2024-05-02 11:43 | Day surgery (SDC) | payer BC ==
[2024-05-02] MEDS ORDERED: Acetaminophen 500 MG TAB ONE (12:43)
[2024-05-02] MEDS ORDERED: diphenhydrAMINE 25 MG CAP ONE (12:43)
[2024-05-02] MEDS: Acetaminophen 500 MG TAB PO SCH (12:44)
[2024-05-02] MEDS: diphenhydrAMINE 25 MG CAP PO SCH (12:44)
[2024-05-02 13:12] VITALS: TEMP 98.1
[2024-05-02 14:30] LABS: #Basophils 0.03 10x3/uL (0.0-0.2); %Basophils 1.1 % (0.0-1.0); %Eosinophils 10.9 % (0.0-10.0); %Lymphocytes 18.4 % (21.0-51.0); %Monocytes 9.7 % (0.0-10.0); %Neutrophils 59.9 % (42.0-75.0); Hematocrit 32.3 % (42.0-52.0); Hemoglobin 10.8 g/dL (14.0-18.0); Mean Corpuscular HGB CONC 33.4 g/dL (32.0-36.0); Mean Corpuscular Hemoglobin 30.8 pg (27.0-31.0); Mean Platelet Volume 10.5 fL (7.4-10.4); Platelet Count 40 10x3/uL (130-400); RBC Distribution Width 14.3 % (11.5-14.5); Red Blood Cell (RBC) Count 3.51 mill/uL (4.70-6.10)
[2024-05-02 14:54] VITALS: BP 129/61
== END 2024-05-02 14:57 | disposition home or self-care (01) ==
LOC: ONC/OP 11:43
PROVIDERS: ATTEND Internal Medicine Hematology & Oncology
DX: D64.9 Anemia, unspecified (principal); D69.6 Thrombocytopenia, unspecified; Z91.011 Allergy to milk products
CPT/HCPCS: 36430; 86850; 86900; 86901; P9035

== ENCOUNTER 2024-11-15 15:00 | Inpatient (IN) | payer BC ==
[2024-11-16 13:06] LABS: Anion Gap 12 mmol/L (10-20); BUN (Urea Nitrogen) 30 mg/dL (8.9-20.6); Calc. Creatinine Clearance 0 mL/min (70-130); Calcium 8.1 mg/dL (7.8-10.44); Carbon Dioxide 20 mmol/L (22-29); Chloride 112 mmol/L (98-107); Glucose 166 mg/dL (70-105); Potassium 4.8 mmol/L (3.5-5.1); Sodium 139 mmol/L (136-145)
[2024-11-16 13:55] LABS: #Basophils 0.03 10x3/uL (0.0-0.2); #Eosinophils 0.30 10x3/uL (0.0-0.7); #Monocytes 0.23 10x3/uL (0.11-0.59); #Neutrophils 1.41 10x3/uL (1.40-6.50); %Basophils 1.2 % (0.0-1.0); %Eosinophils 12.4 % (0.0-10.0); %Lymphocytes 18.6 % (21.0-51.0); %Monocytes 9.5 % (0.0-10.0); %Neutrophils 58.3 % (42.0-75.0); Hematocrit 28.5 % (42.0-52.0); Hemoglobin 9.4 g/dL (14.0-18.0); Mean Corpuscular Hemoglobin 30.8 pg (27.0-31.0); Mean Corpuscular Volume 93.4 fL (78.0-98.0); Platelet Count 29 10x3/uL (130-400); Red Blood Cell (RBC) Count 3.05 mill/uL (4.70-6.10); White Blood Cell (WBC) Count 2.42 10x3/uL (4.8-10.8)
[2024-11-16 14:41] LABS: Platelet Adequacy Comment Significant Decrease; Polychromasia SLIGHT = 2-3 cells HPF (0-2); Smudge Cells 16.0 %
[2024-11-21] MEDS ORDERED: Dextrose 50% Abboject 50 ML SYRINGE SLOW IVP PRN (13:39)
[2024-11-21] MEDS ORDERED: hydrALAZINE 20 MG/ML VIAL SLOW IVP PRN (13:39)
[2024-11-21] MEDS ORDERED: Glucagon 1 MG/ML KIT IM PRN (13:39)
[2024-11-21] MEDS ORDERED: Albuterol 200 PUFF (6.7GM INHALER) INH PRN (13:41)
[2024-11-21] MEDS ORDERED: Fluticasone Propionate HFA 220 MCG AER INH PRN (13:41)
[2024-11-22 05:43] LABS: #Basophils 0.03 10x3/uL (0.0-0.2); #Eosinophils 0.36 10x3/uL (0.0-0.7); #Monocytes 0.28 10x3/uL (0.11-0.59); #Neutrophils 1.32 10x3/uL (1.40-6.50); %Basophils 1.2 % (0.0-1.0); %Eosinophils 14.3 % (0.0-10.0); %Lymphocytes 20.7 % (21.0-51.0); %Monocytes 11.2 % (0.0-10.0); %Neutrophils 52.6 % (42.0-75.0); Hematocrit 27.3 % (42.0-52.0); Hemoglobin 8.9 g/dL (14.0-18.0); Mean Corpuscular Hemoglobin 30.8 pg (27.0-31.0); Mean Corpuscular Volume 94.5 fL (78.0-98.0); Platelet Count 37 10x3/uL (130-400); Red Blood Cell (RBC) Count 2.89 mill/uL (4.70-6.10); White Blood Cell (WBC) Count 2.51 10x3/uL (4.8-10.8)
[2024-11-22 05:45] LABS: Anion Gap 12 mmol/L (10-20); BUN (Urea Nitrogen) 29 mg/dL (8.9-20.6); Calc. Creatinine Clearance 59 mL/min (70-130); Calcium 7.8 mg/dL (7.8-10.44); Carbon Dioxide 17 mmol/L (22-29); Chloride 113 mmol/L (98-107); Glucose 125 mg/dL (70-105); Potassium 4.6 mmol/L (3.5-5.1); Sodium 137 mmol/L (136-145)
[2024-11-22 06:07] LABS: Macrocytosis SLIGHT = 6-15 cells HPF (0-5); Platelet Adequacy Comment Platelets Decreased
[2024-11-22] MEDS ORDERED: Heparin 10,000 UNITS/ 10 ML VIAL ONE (07:00)
[2024-11-22] MEDS ORDERED: PROPOFOL 20 ML ONE (07:00)
[2024-11-22] MEDS ORDERED: Lidocaine 1% PF 5 ML VIAL ONE (07:02)
[2024-11-22] MEDS ORDERED: Rocuronium Bromide 10 MG/ML (10ML VIAL) ONE ×2 (07:02→09:03)
[2024-11-22] MEDS ORDERED: fentaNYL PF 100 MCG/2 ML SYRINGE ONE (07:28)
[2024-11-22] MEDS ORDERED: Albuterol HFA (OR) 200 PUFF INH ONE (07:58)
[2024-11-22] MEDS ORDERED: CEFAZOLIN 2 GM VIAL ONE (08:13)
[2024-11-22] MEDS: Pantoprazole 40 MG DR.TAB PO SCH (08:21)
[2024-11-22] MEDS: Propranolol 60 MG TAB PO SCH (08:21)
[2024-11-22] MEDS: Lisinopril 10 MG TAB PO SCH (08:21)
[2024-11-22] MEDS ORDERED: Glycopyrrolate 0.2 MG/ML 5 ML SYRINGE ONE (08:54)
[2024-11-22] MEDS ORDERED: PHENYLEPHRINE-NS 100 MCG/ML 10 ML SYRINGE ONE (09:03)
[2024-11-22] MEDS ORDERED: NOREPINEPHRINE 8 MG/250 ML-D5W 250 ML ONE (09:15)
[2024-11-22] MEDS ORDERED: Sodium Bicarb 50 MEQ/50 ML Abboject 8.4% SYRINGE ONE ×2 (10:00→11:08)
[2024-11-22] MEDS ORDERED: EPINEPHrine 1 MG/10 ML Abboject SYRINGE ONE ×2 (10:01→11:27)
[2024-11-22] MEDS ORDERED: Milrinone 10 MG/10 ML VIAL ONE (10:08)
[2024-11-22] MEDS ORDERED: D5W ONE (11:26)
[2024-11-22] MEDS ORDERED: NOREPINEPHRINE 8 MG/250 ML ONE (11:26)
[2024-11-22] MEDS ORDERED: Calcium Chloride 1 GM/10 ML Abboject SYRINGE ONE (11:27)
[2024-11-22] MEDS: Vasopressin In 0.9 % NaCl 100 ML IV SCH (11:49)
[2024-11-22] MEDS ORDERED: Milrinone 20 MG in Sodium Chloride 0.9% 100 ML IVPB SCH (12:00)
[2024-11-22] MEDS: Calcium Chloride 1 GM/10 ML Abboject SYRINGE IVP SCH (12:03)
[2024-11-22 12:07] LABS: Actual Bicarbonate (HCO3a) 18.5 mEq/L (22-28); Base Excess (BEa) -7.4 mEq/L (-2.0 to +3.0); CO2 Tension 39.3 mmHg (35.0-45.0); Hematocrit-ABG 24 % (42.0-52.0); Hemoglobin (Hb) 8.2 g/dL (14.0-18.0); O2 Tension (PaO2), arterial 69.0 mmHg (80.0-100.0); pH, Arterial 7.291 (7.35-7.45)
[2024-11-22 12:10] LABS: ALV-art Gradient 380.975 mmHg (0-20); Calcium, Ionized (arterial) 1.89 mmol/L (1.12-1.30); Potassium - ABG Lab 6.68 mmol/L (3.70-5.30); Puncture Site Arterial Line
[2024-11-22] MEDS: Dextrose 50% Abboject 50 ML SYRINGE SLOW IVP SCH (12:11)
[2024-11-22] MEDS: Sodium Bicarb 50 MEQ/50 ML Abboject 8.4% SYRINGE IVP SCH (12:12)
[2024-11-22] MEDS ORDERED: DISCONTINUE PREVIOUS NARCOTIC PAIN MEDICATIONS AND BENZODIAZEPINES FS SCH (12:15)
[2024-11-22] MEDS ORDERED: Propofol BOLUS 1,000 MG/100 ML VIAL IV PRN (12:15)
[2024-11-22] MEDS: Calcium Chloride 1 GM/10 ML Abboject SYRINGE ONE (12:44)
[2024-11-22] MEDS: Dextrose 50% Abboject 50 ML SYRINGE ONE (12:44)
[2024-11-22] MEDS: Sodium Bicarb 50 MEQ/50 ML Abboject 8.4% SYRINGE ONE (12:44)
[2024-11-22] MEDS: Vasopressin In 0.9 % NaCl 100 ML ONE (12:45)
[2024-11-22 13:03] LABS: Actual Bicarbonate (HCO3a) 18.1 mEq/L (22-28); Base Excess (BEa) -6.8 mEq/L (-2.0 to +3.0); CO2 Tension 33.3 mmHg (35.0-45.0); Calcium, Ionized (arterial) 1.21 mmol/L (1.12-1.30); Hematocrit-ABG 22 % (42.0-52.0); Hemoglobin (Hb) 7.5 g/dL (14.0-18.0); O2 Tension (PaO2), arterial 67.1 mmHg (80.0-100.0); Potassium - ABG Lab 5.60 mmol/L (3.70-5.30); pH, Arterial 7.352 (7.35-7.45)
[2024-11-22 13:07] LABS: Puncture Site Arterial Line
[2024-11-22 13:08] LABS: ALV-art Gradient 247.775 mmHg (0-20)
[2024-11-22] MEDS: Ventilator Sedation Protocol 1 EACH FS ONE (13:17)
[2024-11-22] MEDS: Sodium Bicarbonate 140 MEQ in Dextrose 5% in Water 1,000 ML IV SCH (14:30)
[2024-11-22 14:57] LABS: #Basophils Less than 0.03 10x3/uL (0.0-0.2); #Eosinophils 0.05 10x3/uL (0.0-0.7); #Monocytes 1.50 10x3/uL (0.11-0.59); #Neutrophils 12.53 10x3/uL (1.40-6.50); %Basophils 0.1 % (0.0-1.0); %Eosinophils 0.3 % (0.0-10.0); %Lymphocytes 3.5 % (21.0-51.0); %Monocytes 10.2 % (0.0-10.0); %Neutrophils 85.6 % (42.0-75.0); Hematocrit 20.7 % (42.0-52.0); Hemoglobin 7.2 g/dL (14.0-18.0); Mean Corpuscular Hemoglobin 31.0 pg (27.0-31.0); Mean Corpuscular Volume 89.2 fL (78.0-98.0); Platelet Count 137 10x3/uL (130-400); Red Blood Cell (RBC) Count 2.32 mill/uL (4.70-6.10); White Blood Cell (WBC) Count 14.66 10x3/uL (4.8-10.8)
[2024-11-22 15:26] LABS: INR-International Normal Ratio 2.2; PTT 29.3 sec (22.9-36.1); Prothrombin Time 24.3 sec (12.0-14.7)
[2024-11-22 15:54] LABS: ALT (SGPT) 32 U/L (Less than 45); AST (SGOT) 43 U/L (11-34); Albumin 2.4 g/dL (3.1-4.5); Alkaline Phosphatase 35 U/L (40-110); Anion Gap 11 mmol/L (10-20); BUN (Urea Nitrogen) 32 mg/dL (8.9-20.6); Bilirubin, Total 1.5 mg/dL (0.3-1.2); Calc. Creatinine Clearance 53 mL/min (70-130); Calcium 8.1 mg/dL (7.8-10.44); Carbon Dioxide 18 mmol/L (22-29); Chloride 113 mmol/L (98-107); Globulin 1.3 g/dL (2.4-3.5); Glucose 383 mg/dL (70-105); Potassium 4.9 mmol/L (3.5-5.1); Sodium 137 mmol/L (136-145)
[2024-11-22] MEDS: NOREPINEPHRINE 8 MG/250 ML-D5W 250 ML IVPB SCH (16:10)
[2024-11-22] MEDS: Albumin 25% 25 GM (100 mL) BOT IVPB SCH (16:50)
[2024-11-22 20:57] LABS: #Basophils Less than 0.03 10x3/uL (0.0-0.2); #Eosinophils Less than 0.03 10x3/uL (0.0-0.7); #Monocytes 1.45 10x3/uL (0.11-0.59); #Neutrophils 14.50 10x3/uL (1.40-6.50); %Basophils 0.1 % (0.0-1.0); %Eosinophils 0.1 % (0.0-10.0); %Lymphocytes 3.7 % (21.0-51.0); %Monocytes 8.7 % (0.0-10.0); %Neutrophils 87.1 % (42.0-75.0); Hematocrit 20.7 % (42.0-52.0); Hemoglobin 7.7 g/dL (14.0-18.0); Mean Corpuscular Hemoglobin 31.6 pg (27.0-31.0); Mean Corpuscular Volume 84.8 fL (78.0-98.0); Platelet Count 129 10x3/uL (130-400); Red Blood Cell (RBC) Count 2.44 mill/uL (4.70-6.10); White Blood Cell (WBC) Count 16.65 10x3/uL (4.8-10.8)
[2024-11-23 04:20] LABS: ALT (SGPT) 39 U/L (Less than 45); AST (SGOT) 56 U/L (11-34); Albumin 2.5 g/dL (3.1-4.5); Alkaline Phosphatase 33 U/L (40-110); Anion Gap 14 mmol/L (10-20); BUN (Urea Nitrogen) 38 mg/dL (8.9-20.6); Bilirubin, Total 1.4 mg/dL (0.3-1.2); Calc. Creatinine Clearance 46 mL/min (70-130); Calcium 7.7 mg/dL (7.8-10.44); Carbon Dioxide 20 mmol/L (22-29); Chloride 107 mmol/L (98-107); Globulin 1.7 g/dL (2.4-3.5); Glucose 332 mg/dL (70-105); Potassium 4.6 mmol/L (3.5-5.1); Sodium 136 mmol/L (136-145)
[2024-11-23 05:03] LABS: #Basophils Less than 0.03 10x3/uL (0.0-0.2); #Eosinophils Less than 0.03 10x3/uL (0.0-0.7); #Monocytes 1.19 10x3/uL (0.11-0.59); #Neutrophils 16.47 10x3/uL (1.40-6.50); %Basophils 0.1 % (0.0-1.0); %Eosinophils 0.0 % (0.0-10.0); %Lymphocytes 4.4 % (21.0-51.0); %Monocytes 6.4 % (0.0-10.0); %Neutrophils 88.7 % (42.0-75.0); Hematocrit 20.1 % (42.0-52.0); Hemoglobin 7.3 g/dL (14.0-18.0); Mean Corpuscular Hemoglobin 30.9 pg (27.0-31.0); Mean Corpuscular Volume 85.2 fL (78.0-98.0); Platelet Count 132 10x3/uL (130-400); Red Blood Cell (RBC) Count 2.36 mill/uL (4.70-6.10); White Blood Cell (WBC) Count 18.57 10x3/uL (4.8-10.8)
[2024-11-23 07:44] LABS: Actual Bicarbonate (HCO3a) 22.7 mEq/L (22-28); Base Excess (BEa) 0.3 mEq/L (-2.0 to +3.0); CO2 Tension 27.5 mmHg (35.0-45.0); Calcium, Ionized (arterial) 1.04 mmol/L (1.12-1.30); Hematocrit-ABG 22 % (42.0-52.0); Hemoglobin (Hb) 7.6 g/dL (14.0-18.0); O2 Tension (PaO2), arterial 71.9 mmHg (80.0-100.0); Potassium - ABG Lab 4.27 mmol/L (3.70-5.30); pH, Arterial 7.534 (7.35-7.45)
[2024-11-23 07:46] LABS: ALV-art Gradient 178.925 mmHg (0-20); Puncture Site Arterial Line
[2024-11-23] MEDS: Pantoprazole 40 MG VIAL IVP SCH (09:17)
[2024-11-23] MEDS: Insulin NPH Human Isophane 100 UNITS/ML (10 ML VIAL) SC SCH (09:17)
[2024-11-23 17:45] LABS: Hematocrit 23.6 % (42.0-52.0); Hemoglobin 8.4 g/dL (14.0-18.0); Mean Corpuscular Hemoglobin 30.4 pg (27.0-31.0); Mean Corpuscular Volume 85.5 fL (78.0-98.0); Platelet Count 135 10x3/uL (130-400); Red Blood Cell (RBC) Count 2.76 mill/uL (4.70-6.10); White Blood Cell (WBC) Count 28.90 10x3/uL (4.8-10.8)
[2024-11-23 17:59] LABS: Anisocytosis SLIGHT = 6-15 cells HPF (0-5); Macrocytosis SLIGHT = 6-15 cells HPF (0-5); Ovalocytes SLIGHT = 2-5 cells HPF (0-1); Platelet Adequacy Comment Platelets Normal; Polychromasia SLIGHT = 2-3 cells HPF (0-2); Smudge Cells 1.0 %
[2024-11-24] MEDS: Fentanyl BOLUS 100 ML IVPB PRN (02:10)
[2024-11-24 04:06] LABS: ALT (SGPT) 32 U/L (Less than 45); AST (SGOT) 42 U/L (11-34); Albumin 2.5 g/dL (3.1-4.5); Alkaline Phosphatase 47 U/L (40-110); Anion Gap 12 mmol/L (10-20); BUN (Urea Nitrogen) 45 mg/dL (8.9-20.6); Bilirubin, Total 1.1 mg/dL (0.3-1.2); Calc. Creatinine Clearance 45 mL/min (70-130); Calcium 7.4 mg/dL (7.8-10.44); Carbon Dioxide 29 mmol/L (22-29); Chloride 99 mmol/L (98-107); Globulin 2.3 g/dL (2.4-3.5); Glucose 230 mg/dL (70-105); Potassium 4.5 mmol/L (3.5-5.1); Sodium 135 mmol/L (136-145)
[2024-11-24 04:28] LABS: Hematocrit 23.6 % (42.0-52.0); Hemoglobin 8.3 g/dL (14.0-18.0); Mean Corpuscular Hemoglobin 30.2 pg (27.0-31.0); Mean Corpuscular Volume 85.8 fL (78.0-98.0); Platelet Count 128 10x3/uL (130-400); Red Blood Cell (RBC) Count 2.75 mill/uL (4.70-6.10); White Blood Cell (WBC) Count 30.47 10x3/uL (4.8-10.8)
[2024-11-24 05:15] LABS: Platelet Adequacy Comment Platelets Decreased; RBC Morphology Within Normal Limits; Smudge Cells 3.9 %
[2024-11-24 07:56] LABS: Actual Bicarbonate (HCO3a) 30.1 mEq/L (22-28); Base Excess (BEa) 6.9 mEq/L (-2.0 to +3.0); CO2 Tension 37.3 mmHg (35.0-45.0); Calcium, Ionized (arterial) 0.99 mmol/L (1.12-1.30); Hematocrit-ABG 27 % (42.0-52.0); Hemoglobin (Hb) 9.1 g/dL (14.0-18.0); O2 Tension (PaO2), arterial 63.1 mmHg (80.0-100.0); Potassium - ABG Lab 4.43 mmol/L (3.70-5.30); pH, Arterial 7.525 (7.35-7.45)
[2024-11-24 07:57] LABS: ALV-art Gradient 175.475 mmHg (0-20); Puncture Site Arterial Line
[2024-11-24] MEDS: Furosemide 40 MG (4 mL) VIAL SLOW IVP SCH (09:48)
[2024-11-25 04:51] LABS: ALT (SGPT) 21 U/L (Less than 45); AST (SGOT) 27 U/L (11-34); Albumin 2.0 g/dL (3.1-4.5); Alkaline Phosphatase 48 U/L (40-110); Anion Gap 14 mmol/L (10-20); BUN (Urea Nitrogen) 57 mg/dL (8.9-20.6); Bilirubin, Total 1.0 mg/dL (0.3-1.2); Calc. Creatinine Clearance 39 mL/min (70-130); Calcium 7.0 mg/dL (7.8-10.44); Carbon Dioxide 28 mmol/L (22-29); Chloride 100 mmol/L (98-107); Globulin 2.3 g/dL (2.4-3.5); Glucose 155 mg/dL (70-105); Potassium 4.9 mmol/L (3.5-5.1); Sodium 137 mmol/L (136-145)
[2024-11-25 05:00] LABS: #Basophils 0.08 10x3/uL (0.0-0.2); #Eosinophils 1.78 10x3/uL (0.0-0.7); #Monocytes 1.89 10x3/uL (0.11-0.59); #Neutrophils 17.87 10x3/uL (1.40-6.50); %Basophils 0.3 % (0.0-1.0); %Eosinophils 7.5 % (0.0-10.0); %Lymphocytes 7.5 % (21.0-51.0); %Monocytes 7.9 % (0.0-10.0); %Neutrophils 75.0 % (42.0-75.0); Hematocrit 20.4 % (42.0-52.0); Hemoglobin 6.8 g/dL (14.0-18.0); Mean Corpuscular Hemoglobin 30.0 pg (27.0-31.0); Mean Corpuscular Volume 89.9 fL (78.0-98.0); Platelet Count 93 10x3/uL (130-400); Red Blood Cell (RBC) Count 2.27 mill/uL (4.70-6.10); White Blood Cell (WBC) Count 23.85 10x3/uL (4.8-10.8)
[2024-11-25 07:10] LABS: Actual Bicarbonate (HCO3a) 28.1 mEq/L (22-28); Base Excess (BEa) 3.8 mEq/L (-2.0 to +3.0); CO2 Tension 41.1 mmHg (35.0-45.0); Calcium, Ionized (arterial) 1.01 mmol/L (1.12-1.30); Hematocrit-ABG 22 % (42.0-52.0); Hemoglobin (Hb) 7.6 g/dL (14.0-18.0); Potassium - ABG Lab 4.75 mmol/L (3.70-5.30); pH, Arterial 7.453 (7.35-7.45)
[2024-11-25 07:18] LABS: O2 Tension (PaO2), arterial 42.2 mmHg (80.0-100.0)
[2024-11-25 07:19] LABS: ALV-art Gradient 191.625 mmHg (0-20); Puncture Site Right Brachial art
[2024-11-25 15:12] LABS: Hematocrit 22.7 % (42.0-52.0); Hemoglobin 7.8 g/dL (14.0-18.0)
[2024-11-25] MEDS: Enoxaparin 40 MG (0.4 mL) SYRINGE SC SCH (21:00)
[2024-11-26 04:54] LABS: #Basophils 0.05 10x3/uL (0.0-0.2); #Eosinophils 2.84 10x3/uL (0.0-0.7); #Monocytes 2.29 10x3/uL (0.11-0.59); #Neutrophils 13.02 10x3/uL (1.40-6.50); %Basophils 0.3 % (0.0-1.0); %Eosinophils 14.5 % (0.0-10.0); %Lymphocytes 7.0 % (21.0-51.0); %Monocytes 11.7 % (0.0-10.0); %Neutrophils 66.1 % (42.0-75.0); Hematocrit 22.6 % (42.0-52.0); Hemoglobin 7.7 g/dL (14.0-18.0); Mean Corpuscular Hemoglobin 30.1 pg (27.0-31.0); Mean Corpuscular Volume 88.3 fL (78.0-98.0); Platelet Count 111 10x3/uL (130-400); Red Blood Cell (RBC) Count 2.56 mill/uL (4.70-6.10); White Blood Cell (WBC) Count 19.65 10x3/uL (4.8-10.8)
[2024-11-26 05:15] LABS: Anion Gap 15 mmol/L (10-20); BUN (Urea Nitrogen) 65 mg/dL (8.9-20.6); Calc. Creatinine Clearance 40 mL/min (70-130); Calcium 7.4 mg/dL (7.8-10.44); Carbon Dioxide 27 mmol/L (22-29); Chloride 102 mmol/L (98-107); Glucose 152 mg/dL (70-105); Potassium 4.6 mmol/L (3.5-5.1); Sodium 139 mmol/L (136-145)
[2024-11-26] MEDS: Furosemide 100 MG (10 mL) VIAL SLOW IVP SCH ×2 (12:23→15:12)
[2024-11-26] MEDS: Amiodarone 150 MG, Admixture Fee 1 EACH in Dextrose 5% in Water 100 ML IVPB SCH (15:57)
[2024-11-26] MEDS: Digoxin 0.5 MG/2 ML AMP SLOW IVP SCH (16:07)
[2024-11-26] MEDS: Metoprolol Tartrate 5 MG (5 mL) VIAL IVP SCH (21:21)
[2024-11-26] MEDS ORDERED: Acetaminophen 325 MG TAB PO PRN (23:30)
[2024-11-27 04:55] LABS: #Basophils 0.09 10x3/uL (0.0-0.2); #Eosinophils 2.05 10x3/uL (0.0-0.7); #Monocytes 3.04 10x3/uL (0.11-0.59); #Neutrophils 12.10 10x3/uL (1.40-6.50); %Basophils 0.5 % (0.0-1.0); %Eosinophils 10.8 % (0.0-10.0); %Lymphocytes 8.1 % (21.0-51.0); %Monocytes 16.1 % (0.0-10.0); %Neutrophils 63.9 % (42.0-75.0); Hematocrit 22.3 % (42.0-52.0); Hemoglobin 7.4 g/dL (14.0-18.0); Mean Corpuscular Hemoglobin 30.5 pg (27.0-31.0); Mean Corpuscular Volume 91.8 fL (78.0-98.0); Platelet Count 146 10x3/uL (130-400); Red Blood Cell (RBC) Count 2.43 mill/uL (4.70-6.10); White Blood Cell (WBC) Count 18.94 10x3/uL (4.8-10.8)
[2024-11-27 08:02] LABS: Anion Gap 15 mmol/L (10-20); BUN (Urea Nitrogen) 66 mg/dL (8.9-20.6); Calc. Creatinine Clearance 39 mL/min (70-130); Calcium 7.5 mg/dL (7.8-10.44); Carbon Dioxide 27 mmol/L (22-29); Chloride 103 mmol/L (98-107); Glucose 148 mg/dL (70-105); Potassium 4.7 mmol/L (3.5-5.1); Sodium 140 mmol/L (136-145)
[2024-11-27] MEDS: Acetaminophen 500 MG TAB PO SCH (08:26)
[2024-11-27] MEDS: oxyCODONE 5 MG TAB PO PRN (08:27)
[2024-11-27] MEDS: Enoxaparin 30 MG (0.3 mL) SYRINGE SC SCH (08:28)
[2024-11-27] MEDS: Enoxaparin 100 MG (1 mL) SYRINGE SC SCH (08:28)
[2024-11-27] MEDS: Ondansetron PF 4 MG/2 ML Vial IVP PRN (12:12)
[2024-11-27] MEDS: Simethicone Chewable 80 MG TAB PO PRN (15:54)
[2024-11-28] MEDS: diphenhydrAMINE 50 MG/ML VIAL IVP SCH (04:13)
[2024-11-28 04:48] LABS: #Basophils 0.07 10x3/uL (0.0-0.2); #Eosinophils 1.43 10x3/uL (0.0-0.7); #Monocytes 2.80 10x3/uL (0.11-0.59); #Neutrophils 14.04 10x3/uL (1.40-6.50); %Basophils 0.4 % (0.0-1.0); %Eosinophils 7.3 % (0.0-10.0); %Lymphocytes 5.1 % (21.0-51.0); %Monocytes 14.3 % (0.0-10.0); %Neutrophils 72.0 % (42.0-75.0); Hematocrit 24.0 % (42.0-52.0); Hemoglobin 7.7 g/dL (14.0-18.0); Mean Corpuscular Hemoglobin 29.2 pg (27.0-31.0); Mean Corpuscular Volume 90.9 fL (78.0-98.0); Platelet Count 234 10x3/uL (130-400); Red Blood Cell (RBC) Count 2.64 mill/uL (4.70-6.10); White Blood Cell (WBC) Count 19.52 10x3/uL (4.8-10.8)
[2024-11-28] MEDS: Metoprolol Tartrate 5 MG (5 mL) VIAL IVP SCH ×3 (09:59→23:33)
[2024-11-28 10:51] LABS: Anion Gap 21 mmol/L (10-20); BUN (Urea Nitrogen) 79 mg/dL (8.9-20.6); Calc. Creatinine Clearance 38 mL/min (70-130); Calcium 8.3 mg/dL (7.8-10.44); Carbon Dioxide 24 mmol/L (22-29); Chloride 100 mmol/L (98-107); Glucose 151 mg/dL (70-105); Potassium 4.5 mmol/L (3.5-5.1); Sodium 140 mmol/L (136-145)
[2024-11-28 11:39] LABS: Glucose, Urine (Dipstick) Normal (Negative); Leukocyte 250 Leu/uL (Negative); Protein, Urine (Dipstick) 30 mg/dL (Neg-Trace); Specific Gravity, Urine 1.010 (1.002-1.036)
[2024-11-28 11:40] LABS: Bacteria/HPF 1+ HPF (None Seen)
[2024-11-28 12:20] LABS: Protein, Urine Random Quant 50.0 mg/dL (1-14)
[2024-11-28] MEDS: EPOETIN ALFA-EPBX (ESRD) 10,000 UNITS/ML VIAL SC SCH (13:15)
[2024-11-28] MEDS ORDERED: Enoxaparin 100 MG (1 mL) SYRINGE SC SCH (21:00)
[2024-11-29 05:33] LABS: #Basophils 0.19 10x3/uL (0.0-0.2); #Eosinophils 1.12 10x3/uL (0.0-0.7); #Monocytes 3.32 10x3/uL (0.11-0.59); #Neutrophils 13.36 10x3/uL (1.40-6.50); %Basophils 1.0 % (0.0-1.0); %Eosinophils 5.7 % (0.0-10.0); %Lymphocytes 6.8 % (21.0-51.0); %Monocytes 17.0 % (0.0-10.0); %Neutrophils 68.6 % (42.0-75.0); Hematocrit 23.6 % (42.0-52.0); Hemoglobin 7.6 g/dL (14.0-18.0); Mean Corpuscular Hemoglobin 30.0 pg (27.0-31.0); Mean Corpuscular Volume 93.3 fL (78.0-98.0); Platelet Count 346 10x3/uL (130-400); Red Blood Cell (RBC) Count 2.53 mill/uL (4.70-6.10); White Blood Cell (WBC) Count 19.50 10x3/uL (4.8-10.8)
[2024-11-29 05:57] LABS: ALT (SGPT) 18 U/L (Less than 45); AST (SGOT) 21 U/L (11-34); Albumin 2.2 g/dL (3.1-4.5); Alkaline Phosphatase 64 U/L (40-110); Anion Gap 19 mmol/L (10-20); BUN (Urea Nitrogen) 81 mg/dL (8.9-20.6); Bilirubin, Total 1.0 mg/dL (0.3-1.2); Calc. Creatinine Clearance 36 mL/min (70-130); Calcium 8.2 mg/dL (7.8-10.44); Carbon Dioxide 26 mmol/L (22-29); Chloride 100 mmol/L (98-107); Globulin 3.3 g/dL (2.4-3.5); Glucose 134 mg/dL (70-105); Potassium 4.4 mmol/L (3.5-5.1); Sodium 141 mmol/L (136-145)
[2024-11-29] MEDS: Enoxaparin 100 MG (1 mL) SYRINGE SC SCH (10:34)
[2024-11-29] MEDS: Nitroglycerin 50 MG/250 ML BOT 250 ML ONE (12:12)
[2024-11-29] MEDS: Albumin 25% 25 GM (100 mL) BOT IVPB SCH (13:21)
[2024-11-29 13:45] VITALS: BMI 39.6
[2024-11-30 07:04] LABS: #Basophils 0.23 10x3/uL (0.0-0.2); #Eosinophils 4.64 10x3/uL (0.0-0.7); #Monocytes 2.55 10x3/uL (0.11-0.59); #Neutrophils 14.62 10x3/uL (1.40-6.50); %Basophils 1.0 % (0.0-1.0); %Eosinophils 19.5 % (0.0-10.0); %Lymphocytes 5.7 % (21.0-51.0); %Monocytes 10.7 % (0.0-10.0); %Neutrophils 61.5 % (42.0-75.0); Hematocrit 22.4 % (42.0-52.0); Hemoglobin 7.3 g/dL (14.0-18.0); Mean Corpuscular Hemoglobin 30.2 pg (27.0-31.0); Mean Corpuscular Volume 92.6 fL (78.0-98.0); Platelet Count 423 10x3/uL (130-400); Red Blood Cell (RBC) Count 2.42 mill/uL (4.70-6.10); White Blood Cell (WBC) Count 23.77 10x3/uL (4.8-10.8)
[2024-11-30 07:26] LABS: ALT (SGPT) 17 U/L (Less than 45); AST (SGOT) 27 U/L (11-34); Albumin 2.7 g/dL (3.1-4.5); Alkaline Phosphatase 65 U/L (40-110); Anion Gap 17 mmol/L (10-20); BUN (Urea Nitrogen) 80 mg/dL (8.9-20.6); Bilirubin, Total 1.3 mg/dL (0.3-1.2); Calc. Creatinine Clearance 39 mL/min (70-130); Calcium 8.4 mg/dL (7.8-10.44); Carbon Dioxide 29 mmol/L (22-29); Chloride 99 mmol/L (98-107); Globulin 3.1 g/dL (2.4-3.5); Glucose 130 mg/dL (70-105); Potassium 3.5 mmol/L (3.5-5.1); Sodium 141 mmol/L (136-145)
[2024-11-30] MEDS: Apixaban 2.5 MG TAB PO SCH (09:46)
[2024-11-30] MEDS: Metoprolol Succinate XL 50 MG ER.TAB PO SCH (10:47)
[2024-11-30] MEDS: Pantoprazole 40 MG VIAL IVP SCH (10:48)
[2024-11-30] MEDS: Potassium Bicarbonate/Cit Ac 20 MEQ TAB PO SCH (10:49)
[2024-12-01 04:27] LABS: #Basophils 0.17 10x3/uL (0.0-0.2); #Eosinophils 4.74 10x3/uL (0.0-0.7); #Monocytes 2.69 10x3/uL (0.11-0.59); #Neutrophils 13.29 10x3/uL (1.40-6.50); %Basophils 0.8 % (0.0-1.0); %Eosinophils 21.0 % (0.0-10.0); %Lymphocytes 6.4 % (21.0-51.0); %Monocytes 11.9 % (0.0-10.0); %Neutrophils 58.8 % (42.0-75.0); Hematocrit 22.2 % (42.0-52.0); Hemoglobin 7.2 g/dL (14.0-18.0); Mean Corpuscular Hemoglobin 29.6 pg (27.0-31.0); Mean Corpuscular Volume 91.4 fL (78.0-98.0); Platelet Count 455 10x3/uL (130-400); Red Blood Cell (RBC) Count 2.43 mill/uL (4.70-6.10); White Blood Cell (WBC) Count 22.58 10x3/uL (4.8-10.8)
[2024-12-01 04:44] LABS: Anion Gap 18 mmol/L (10-20); BUN (Urea Nitrogen) 76 mg/dL (8.9-20.6); Calc. Creatinine Clearance 47 mL/min (70-130); Calcium 8.2 mg/dL (7.8-10.44); Carbon Dioxide 29 mmol/L (22-29); Chloride 97 mmol/L (98-107); Glucose 105 mg/dL (70-105); Potassium 3.6 mmol/L (3.5-5.1); Sodium 140 mmol/L (136-145)
[2024-12-01] MEDS: Amiodarone 200 MG TAB PO SCH (09:50)
[2024-12-01] MEDS: Potassium Chloride 20 MEQ in Premix 1 BAG IVPB SCH (09:52)
[2024-12-01 14:39] LABS: Kappa Lambda Light Chain Ratio 1.79 (0.26-1.65)
[2024-12-01 14:39] LABS: Albumin-Ur 74.3 % (.); Alpha 1 - Ur 2.5 % (.); Alpha 2 - Ur 7.2 % (.); Beta-Ur 9.5 % (.); Gamma-Ur 6.6 % (.); M-Spike,% Not Observed % (Not Observed); Protein, Urine 48.4 mg/dL (Not Estab.)
[2024-12-01 16:56] LABS: Potassium 3.6 mmol/L (3.5-5.1)
[2024-12-02 04:25] LABS: #Basophils 0.15 10x3/uL (0.0-0.2); #Eosinophils 2.93 10x3/uL (0.0-0.7); #Monocytes 2.03 10x3/uL (0.11-0.59); #Neutrophils 13.32 10x3/uL (1.40-6.50); %Basophils 0.7 % (0.0-1.0); %Eosinophils 14.6 % (0.0-10.0); %Lymphocytes 7.4 % (21.0-51.0); %Monocytes 10.1 % (0.0-10.0); %Neutrophils 66.4 % (42.0-75.0); Hematocrit 22.1 % (42.0-52.0); Hemoglobin 7.3 g/dL (14.0-18.0); Mean Corpuscular Hemoglobin 29.8 pg (27.0-31.0); Mean Corpuscular Volume 90.2 fL (78.0-98.0); Platelet Count 521 10x3/uL (130-400); Red Blood Cell (RBC) Count 2.45 mill/uL (4.70-6.10); White Blood Cell (WBC) Count 20.09 10x3/uL (4.8-10.8)
[2024-12-02 04:39] LABS: Anion Gap 14 mmol/L (10-20); BUN (Urea Nitrogen) 77 mg/dL (8.9-20.6); Calc. Creatinine Clearance 53 mL/min (70-130); Calcium 7.8 mg/dL (7.8-10.44); Carbon Dioxide 31 mmol/L (22-29); Chloride 96 mmol/L (98-107); Glucose 100 mg/dL (70-105); Potassium 3.7 mmol/L (3.5-5.1); Sodium 137 mmol/L (136-145)
[2024-12-02 05:10] VITALS: BMI 39.6
[2024-12-02] MEDS: Lidocaine 1% (PF) 30 ML VIAL ONE (08:40)
[2024-12-02] MEDS: Amiodarone 200 MG TAB PO SCH (09:52)
[2024-12-02] MEDS: Insulin NPH Human Isophane 100 UNITS/ML (10 ML VIAL) SC SCH (09:53)
[2024-12-02] MEDS: Pantoprazole 40 MG DR.TAB PO SCH (09:53)
[2024-12-02] MEDS: Furosemide 40 MG (4 mL) VIAL SLOW IVP SCH (14:49)
[2024-12-02 16:14] LABS: A/G Ratio 0.9 (0.7-1.7); Albumin 2.5 g/dL (2.9-4.4); Alpha 1 0.5 g/dL (0.0-0.4); Alpha 2 1.0 g/dL (0.4-1.0); Beta 0.6 g/dL (0.7-1.3); Gamma 0.6 g/dL (0.4-1.8); Globulin, Total 2.7 g/dL (2.2-3.9); M-Spike Not Observed g/dL (Not Observed)
[2024-12-03 06:52] LABS: Anion Gap 18 mmol/L (10-20); BUN (Urea Nitrogen) 70 mg/dL (8.9-20.6); Calc. Creatinine Clearance 58 mL/min (70-130); Calcium 8.1 mg/dL (7.8-10.44); Carbon Dioxide 26 mmol/L (22-29); Chloride 97 mmol/L (98-107); Glucose 119 mg/dL (70-105); Potassium 4.2 mmol/L (3.5-5.1); Sodium 137 mmol/L (136-145)
[2024-12-03] MEDS: Apixaban 5 MG TAB PO SCH (20:40)
[2024-12-04 04:18] LABS: Anion Gap 16 mmol/L (10-20); BUN (Urea Nitrogen) 64 mg/dL (8.9-20.6); Calc. Creatinine Clearance 60 mL/min (70-130); Calcium 8.2 mg/dL (7.8-10.44); Carbon Dioxide 28 mmol/L (22-29); Chloride 98 mmol/L (98-107); Glucose 122 mg/dL (70-105); Potassium 4.0 mmol/L (3.5-5.1); Sodium 138 mmol/L (136-145)
[2024-12-04] MEDS: Furosemide 40 MG TAB PO SCH (14:34)
[2024-12-05 04:54] LABS: Anion Gap 17 mmol/L (10-20); BUN (Urea Nitrogen) 59 mg/dL (8.9-20.6); Calc. Creatinine Clearance 59 mL/min (70-130); Calcium 8.1 mg/dL (7.8-10.44); Carbon Dioxide 28 mmol/L (22-29); Chloride 98 mmol/L (98-107); Glucose 114 mg/dL (70-105); Potassium 4.4 mmol/L (3.5-5.1); Sodium 139 mmol/L (136-145)
[2024-12-05 10:26] LABS: #Basophils 0.16 10x3/uL (0.0-0.2); #Eosinophils 1.47 10x3/uL (0.0-0.7); #Monocytes 1.80 10x3/uL (0.11-0.59); #Neutrophils 11.65 10x3/uL (1.40-6.50); %Basophils 1.0 % (0.0-1.0); %Eosinophils 8.9 % (0.0-10.0); %Lymphocytes 8.2 % (21.0-51.0); %Monocytes 10.9 % (0.0-10.0); %Neutrophils 70.3 % (42.0-75.0); Hematocrit 25.0 % (42.0-52.0); Hemoglobin 8.0 g/dL (14.0-18.0); Mean Corpuscular Hemoglobin 29.6 pg (27.0-31.0); Mean Corpuscular Volume 92.6 fL (78.0-98.0); Platelet Count 686 10x3/uL (130-400); Red Blood Cell (RBC) Count 2.70 mill/uL (4.70-6.10); White Blood Cell (WBC) Count 16.55 10x3/uL (4.8-10.8)
[2024-12-05 11:53] VITALS: BP 131/86; TEMP 98.8
== END 2024-12-05 14:12 | disposition home or self-care (01) | DRG 799 ==
LOC: SURG A 11-21 16:26 → CCU 11-22 11:40 → IMCU/EMU 12-02 23:01 → PCU 12-03 19:46
PROVIDERS: ADMIT Surgery; ATTEND Surgery
PROC: 0BJ08ZZ Inspection of Tracheobronchial Tree, Via Natural or Artificial Opening Endoscopic (ICD-10-PCS; principal; 2024-11-22)
PROC: 03HY32Z Insertion of Monitoring Device into Upper Artery, Percutaneous Approach (ICD-10-PCS; 2024-11-22)
PROC: 4A133B1 Monitoring of Arterial Pressure, Peripheral, Percutaneous Approach (ICD-10-PCS; 2024-11-22)
PROC: 4A133J1 Monitoring of Arterial Pulse, Peripheral, Percutaneous Approach (ICD-10-PCS; 2024-11-22)
PROC: 07BP0ZZ Excision of Spleen, Open Approach (ICD-10-PCS; 2024-11-22)
PROC: 30233N1 Transfusion of Nonautologous Red Blood Cells into Peripheral Vein, Percutaneous Approach (ICD-10-PCS; 2024-11-22)
PROC: 30233K1 Transfusion of Nonautologous Frozen Plasma into Peripheral Vein, Percutaneous Approach (ICD-10-PCS; 2024-11-22)
PROC: 6A551Z2 Pheresis of Platelets, Multiple (ICD-10-PCS; 2024-11-22)
PROC: 4A133R1 Monitoring of Arterial Saturation, Peripheral, Percutaneous Approach (ICD-10-PCS; 2024-11-22)
PROC: 3E033XZ Introduction of Vasopressor into Peripheral Vein, Percutaneous Approach (ICD-10-PCS; 2024-11-22)
PROC: 30233J1 Transfusion of Nonautologous Serum Albumin into Peripheral Vein, Percutaneous Approach (ICD-10-PCS; 2024-11-22)
PROC: 5A1955Z Respiratory Ventilation, Greater than 96 Consecutive Hours (ICD-10-PCS; 2024-11-22)
PROC: 5A09357 Assistance with Respiratory Ventilation, Less than 24 Consecutive Hours, Continuous Positive Airway Pressure (ICD-10-PCS; 2024-12-02)
DX: D73.5 Infarction of spleen (principal); J96.01 Acute respiratory failure with hypoxia; R57.1 Hypovolemic shock; D61.818 Other pancytopenia; J98.11 Atelectasis; N17.9 Acute kidney failure, unspecified; N18.4 Chronic kidney disease, stage 4 (severe); K56.7 Ileus, unspecified; N25.81 Secondary hyperparathyroidism of renal origin; E87.3 Alkalosis; I50.32 Chronic diastolic (congestive) heart failure; I13.0 Hypertensive heart and chronic kidney disease with heart failure and stage 1 through stage 4 chronic kidney disease, or unspecified chronic kidney disease; I82.432 Acute embolism and thrombosis of left popliteal vein; E11.22 Type 2 diabetes mellitus with diabetic chronic kidney disease; E78.5 Hyperlipidemia, unspecified; Z98.890 Other specified postprocedural states; E66.01 Morbid (severe) obesity due to excess calories; Z68.38 Body mass index [BMI] 38.0-38.9, adult; I48.0 Paroxysmal atrial fibrillation; D63.1 Anemia in chronic kidney disease; E87.6 Hypokalemia; E55.9 Vitamin D deficiency, unspecified
CPT/HCPCS: 36415; 36416; 36430; 36600; 71045; 74018; 80048; 80053; 81001; 82043; 82306; 82570; 82805; 83883; 83970; 84100; 84155; 84156; 84165; 84166; 85025; 85610; 85730; 86850; 86900; 86901; 88305; 93005; 93010; 93306; 93970; 94002; 94003; 97139; A4314; A4649; C1713; C1889; J0165; J0169; J0282; J1100; J1160; J1200; J1644; J1650; J1815; J1940; J2250; J2260; J2405; J2470; J2550; J2704; J3480; J3490; J7030; J7070; J7999; P9016; P9035; P9045; P9047; P9059; Q5105

== ENCOUNTER 2025-02-02 14:19 | Outpatient (CLI) | payer BC ==
[2025-02-02 14:44] LABS: Estimated GFR - POC 28.0
== END 2025-02-02 14:20 | disposition home or self-care (01) ==
LOC: CT 14:19
PROVIDERS: ATTEND Internal Medicine Gastroenterology
DX: K43.9 Ventral hernia without obstruction or gangrene (principal); J90 Pleural effusion, not elsewhere classified
CPT/HCPCS: 36415; 74176; 82565

== ENCOUNTER 2025-02-13 08:22 | Emergency (ER) | payer BC ==
[2025-02-13 09:31] LABS: #Basophils 0.26 10x3/uL (0.0-0.2); #Eosinophils 1.23 10x3/uL (0.0-0.7); #Monocytes 0.97 10x3/uL (0.11-0.59); #Neutrophils 2.62 10x3/uL (1.40-6.50); %Basophils 3.8 % (0.0-1.0); %Eosinophils 18.0 % (0.0-10.0); %Lymphocytes 25.6 % (21.0-51.0); %Monocytes 14.2 % (0.0-10.0); %Neutrophils 38.3 % (42.0-75.0); Hematocrit 33.6 % (42.0-52.0); Hemoglobin 10.1 g/dL (14.0-18.0); Mean Corpuscular Hemoglobin 27.2 pg (27.0-31.0); Mean Corpuscular Volume 90.6 fL (78.0-98.0); Platelet Count 302 10x3/uL (130-400); Red Blood Cell (RBC) Count 3.71 mill/uL (4.70-6.10); White Blood Cell (WBC) Count 6.84 10x3/uL (4.8-10.8)
[2025-02-13] MEDS ORDERED: Ketorolac Tromethamine 30 MG (1 mL) VIAL ONE (09:34)
[2025-02-13] MEDS ORDERED: diphenhydrAMINE 50 MG/ML VIAL ONE (09:34)
[2025-02-13] MEDS ORDERED: Metoclopramide HCl 10 MG (2 mL) VIAL ONE (09:34)
[2025-02-13 09:53] LABS: ALT (SGPT) 27 U/L (Less than 45); AST (SGOT) 27 U/L (11-34); Albumin 3.2 g/dL (3.1-4.5); Alkaline Phosphatase 108 U/L (40-110); Anion Gap 14 mmol/L (10-20); BUN (Urea Nitrogen) 20 mg/dL (8.9-20.6); Bilirubin, Total 0.3 mg/dL (0.3-1.2); Calc. Creatinine Clearance 0 mL/min (70-130); Calcium 8.8 mg/dL (7.8-10.44); Carbon Dioxide 24 mmol/L (22-29); Chloride 108 mmol/L (98-107); Globulin 3.9 g/dL (2.4-3.5); Glucose 88 mg/dL (70-105); Lipase 93 U/L (8-78); Potassium 4.7 mmol/L (3.5-5.1); Sodium 141 mmol/L (136-145)
[2025-02-13 11:36] LABS: Bacteria/HPF None Seen HPF (None Seen); CAUTI Indications for Culture Acute Hematuria; Glucose, Urine (Dipstick) >=1000 mg/dL (Negative); Leukocyte Negative Leu/uL (Negative); Protein, Urine (Dipstick) 50 mg/dL (Neg-Trace); Specific Gravity, Urine 1.009 (1.002-1.036); WBC/HPF 0-3 HPF (0-3)
[2025-02-13 11:38] LABS: Urine Culture Reflex No No
== END 2025-02-13 12:20 | disposition home or self-care (01) ==
LOC: ERS 08:22
DX: R10.9 Unspecified abdominal pain (principal); R11.0 Nausea; I10 Essential (primary) hypertension; E11.9 Type 2 diabetes mellitus without complications; K21.9 Gastro-esophageal reflux disease without esophagitis; I48.91 Unspecified atrial fibrillation; F17.220 Nicotine dependence, chewing tobacco, uncomplicated; Z79.4 Long term (current) use of insulin; Z79.01 Long term (current) use of anticoagulants; Z79.899 Other long term (current) drug therapy
CPT/HCPCS: 36415; 74176; 80053; 81001; 83690; 85025; 96365; 96366; 96375; J1200; J1885; J2765

== ENCOUNTER 2025-03-07 11:52 | Outpatient (CLI) | payer BC ==
[2025-03-07 12:45] LABS: #Basophils 0.20 10x3/uL (0.0-0.2); #Eosinophils 1.19 10x3/uL (0.0-0.7); #Monocytes 0.75 10x3/uL (0.11-0.59); #Neutrophils 2.19 10x3/uL (1.40-6.50); %Basophils 3.1 % (0.0-1.0); %Eosinophils 18.6 % (0.0-10.0); %Lymphocytes 32.1 % (21.0-51.0); %Monocytes 11.7 % (0.0-10.0); %Neutrophils 34.3 % (42.0-75.0); Hematocrit 35.8 % (42.0-52.0); Hemoglobin 11.1 g/dL (14.0-18.0); Mean Corpuscular Hemoglobin 27.8 pg (27.0-31.0); Mean Corpuscular Volume 89.5 fL (78.0-98.0); Platelet Count 287 10x3/uL (130-400); Red Blood Cell (RBC) Count 4.00 mill/uL (4.70-6.10); White Blood Cell (WBC) Count 6.39 10x3/uL (4.8-10.8)
[2025-03-07 13:19] LABS: ALT (SGPT) 30 U/L (Less than 45); AST (SGOT) 32 U/L (11-34); Albumin 3.4 g/dL (3.1-4.5); Alkaline Phosphatase 87 U/L (40-110); Anion Gap 13 mmol/L (10-20); BUN (Urea Nitrogen) 27 mg/dL (8.9-20.6); Bilirubin, Direct 0.2 mg/dL (0.1-0.3); Bilirubin, Total 0.5 mg/dL (0.3-1.2); Calc. Creatinine Clearance 0 mL/min (70-130); Calcium 8.9 mg/dL (7.8-10.44); Carbon Dioxide 21 mmol/L (22-29); Chloride 109 mmol/L (98-107); Glucose 82 mg/dL (70-105); Potassium 5.2 mmol/L (3.5-5.1); Sodium 138 mmol/L (136-145)
== END 2025-03-07 11:53 | disposition home or self-care (01) ==
LOC: LABBT 11:52
PROVIDERS: ATTEND Surgery
DX: Z01.812 Encounter for preprocedural laboratory examination (principal); K80.20 Calculus of gallbladder without cholecystitis without obstruction
CPT/HCPCS: 80048; 80076; 85025

== ENCOUNTER 2025-03-14 06:28 | Observation (INO) | payer BC ==
[2025-03-07 12:13] VITALS: BMI 37.8
[2025-03-14] MEDS ORDERED: Bupivacaine 0.25% HCL 30 ML VIAL ONE (06:42)
[2025-03-14] MEDS ORDERED: fentaNYL PF 100 MCG/2 ML SYRINGE ONE ×3 (06:55→10:51)
[2025-03-14] MEDS ORDERED: Lidocaine 1% PF 5 ML VIAL ONE (06:57)
[2025-03-14] MEDS ORDERED: Rocuronium Bromide 10 MG/ML (10ML VIAL) ONE (06:57)
[2025-03-14] MEDS ORDERED: Lidocaine 4% Topical Sol 50 ML BOT ONE (07:03)
[2025-03-14] MEDS ORDERED: CEFAZOLIN 2 GM VIAL ONE (07:32)
[2025-03-14] MEDS ORDERED: PROPOFOL 200 MG/20 ML VIAL ONE (07:47)
[2025-03-14] MEDS ORDERED: Ondansetron PF 4 MG/2 ML Vial ONE (08:56)
[2025-03-14] MEDS ORDERED: SUGAMMADEX SODIUM 200 MG/2 ML VIAL ONE ×2 (08:57→09:09)
[2025-03-14] MEDS ORDERED: Dextrose 50% Abboject 50 ML SYRINGE SLOW IVP PRN (09:39)
[2025-03-14] MEDS ORDERED: Calcium Carbonate 500 MG ChewTAB PO PRN (09:39)
[2025-03-14] MEDS ORDERED: Albuterol 200 PUFF (6.7GM INHALER) INH PRN (09:39)
[2025-03-14] MEDS ORDERED: hydrALAZINE 20 MG/ML VIAL SLOW IVP PRN (09:39)
[2025-03-14] MEDS ORDERED: Ondansetron PF 4 MG/2 ML Vial IVP PRN (09:39)
[2025-03-14] MEDS ORDERED: Mag-Al 1200 mg/1200 mg/30 ML UDCUP PO PRN (09:39)
[2025-03-14] MEDS ORDERED: Glucagon 1 MG/ML KIT IM PRN (09:39)
[2025-03-14] MEDS ORDERED: HYDROmorphone 0.5 MG/0.5 ML SYRINGE ONE ×2 (09:44→10:51)
[2025-03-14] MEDS: oxyCODONE 5 MG TAB PO PRN (13:40)
[2025-03-14] MEDS: Acetaminophen 500 MG TAB PO SCH (13:40)
[2025-03-15 05:21] LABS: #Basophils 0.03 10x3/uL (0.0-0.2); #Eosinophils Less than 0.03 10x3/uL (0.0-0.7); #Monocytes 0.94 10x3/uL (0.11-0.59); #Neutrophils 8.04 10x3/uL (1.40-6.50); %Basophils 0.3 % (0.0-1.0); %Eosinophils 0.1 % (0.0-10.0); %Lymphocytes 13.2 % (21.0-51.0); %Monocytes 9.0 % (0.0-10.0); %Neutrophils 77.1 % (42.0-75.0); Hematocrit 33.2 % (42.0-52.0); Hemoglobin 10.1 g/dL (14.0-18.0); Mean Corpuscular Hemoglobin 27.6 pg (27.0-31.0); Mean Corpuscular Volume 90.7 fL (78.0-98.0); Platelet Count 205 10x3/uL (130-400); Red Blood Cell (RBC) Count 3.66 mill/uL (4.70-6.10); White Blood Cell (WBC) Count 10.43 10x3/uL (4.8-10.8)
[2025-03-15 05:37] LABS: ALT (SGPT) 44 U/L (Less than 45); AST (SGOT) 52 U/L (11-34); Albumin 3.0 g/dL (3.1-4.5); Alkaline Phosphatase 70 U/L (40-110); Anion Gap 12 mmol/L (10-20); BUN (Urea Nitrogen) 34 mg/dL (8.9-20.6); Bilirubin, Total 0.5 mg/dL (0.3-1.2); Calc. Creatinine Clearance 54 mL/min (70-130); Calcium 8.6 mg/dL (7.8-10.44); Carbon Dioxide 23 mmol/L (22-29); Chloride 106 mmol/L (98-107); Globulin 3.4 g/dL (2.4-3.5); Glucose 125 mg/dL (70-105); Lipase 77 U/L (8-78); Potassium 5.7 mmol/L (3.5-5.1); Sodium 135 mmol/L (136-145)
[2025-03-15] MEDS: Losartan 25 MG TAB PO SCH (07:44)
[2025-03-15] MEDS: Amiodarone 200 MG TAB PO SCH (07:45)
[2025-03-15] MEDS: Pantoprazole 40 MG DR.TAB PO SCH (07:45)
[2025-03-15] MEDS: Metoprolol Succinate XL 50 MG ER.TAB PO SCH (07:45)
[2025-03-15] MEDS: Lisinopril 10 MG TAB PO SCH (07:45)
[2025-03-15] MEDS: LOKELMA 10 GM PACKET PO SCH (09:16)
[2025-03-15 15:18] VITALS: TEMP 98.1
[2025-03-15 15:25] LABS: Anion Gap 11 mmol/L (10-20); BUN (Urea Nitrogen) 30 mg/dL (8.9-20.6); Calc. Creatinine Clearance 57 mL/min (70-130); Calcium 8.5 mg/dL (7.8-10.44); Carbon Dioxide 22 mmol/L (22-29); Chloride 105 mmol/L (98-107); Glucose 135 mg/dL (70-105); Potassium 4.8 mmol/L (3.5-5.1); Sodium 133 mmol/L (136-145)
[2025-03-15 16:01] VITALS: BP 156/86
== END 2025-03-15 17:40 | disposition home or self-care (01) ==
LOC: SDC 06:28 → SURG B 13:36
PROVIDERS: ADMIT Surgery; ATTEND Surgery
PROC: 0FT44ZZ Resection of Gallbladder, Percutaneous Endoscopic Approach (ICD-10-PCS; principal; 2025-03-14)
PROC: BF52200 Other Imaging of Gallbladder using Fluorescing Agent, Indocyanine Green Dye, Intraoperative (ICD-10-PCS; 2025-03-14)
DX: K80.10 Calculus of gallbladder with chronic cholecystitis without obstruction (principal); Z91.0110 Allergy to milk products, unspecified
CPT/HCPCS: 36415; 80053; 83690; 85025; 86850; 86870; 86900; 86901; 86905; 86922; 88304; 96374; 96376; C1889; G0378; J0169; J0665; J1100; J1171; J2405; J2704; J3010; J7030; S2900

== ENCOUNTER 2025-03-16 14:29 | Inpatient (IN) | payer BC ==
[2025-03-16] MEDS ORDERED: Ondansetron PF 4 MG/2 ML Vial ONE ×2 (15:20→17:13)
[2025-03-16 15:36] LABS: #Basophils 0.08 10x3/uL (0.0-0.2); #Eosinophils 0.71 10x3/uL (0.0-0.7); #Monocytes 1.19 10x3/uL (0.11-0.59); #Neutrophils 8.52 10x3/uL (1.40-6.50); %Basophils 0.7 % (0.0-1.0); %Eosinophils 6.2 % (0.0-10.0); %Lymphocytes 8.5 % (21.0-51.0); %Monocytes 10.3 % (0.0-10.0); %Neutrophils 74.0 % (42.0-75.0); Hematocrit 35.5 % (42.0-52.0); Hemoglobin 10.8 g/dL (14.0-18.0); Mean Corpuscular Hemoglobin 27.4 pg (27.0-31.0); Mean Corpuscular Volume 90.1 fL (78.0-98.0); Platelet Count 179 10x3/uL (130-400); Red Blood Cell (RBC) Count 3.94 mill/uL (4.70-6.10); White Blood Cell (WBC) Count 11.51 10x3/uL (4.8-10.8)
[2025-03-16 15:56] LABS: Lipase 37.0 U/L (8-78)
[2025-03-16 15:58] LABS: ALT (SGPT) 32 U/L (Less than 45); AST (SGOT) 41 U/L (11-34); Albumin 3.3 g/dL (3.1-4.5); Alkaline Phosphatase 73 U/L (40-110); Anion Gap 15 mmol/L (10-20); BUN (Urea Nitrogen) 33 mg/dL (8.9-20.6); Bilirubin, Total 0.6 mg/dL (0.3-1.2); CRP, High Sensitivity at Bryan 3.83 mg/dL (< or = 0.5); Calc. Creatinine Clearance 0 mL/min (70-130); Calcium 9.1 mg/dL (7.8-10.44); Carbon Dioxide 23 mmol/L (22-29); Chloride 102 mmol/L (98-107); Globulin 3.8 g/dL (2.4-3.5); Glucose 124 mg/dL (70-105); Potassium 5.5 mmol/L (3.5-5.1); Sodium 134 mmol/L (136-145)
[2025-03-16 18:44] VITALS: BMI 37.3
[2025-03-16] MEDS ORDERED: Glucagon 1 MG/ML KIT IM PRN (18:47)
[2025-03-16] MEDS ORDERED: Ondansetron PF 4 MG/2 ML Vial IVP PRN (18:47)
[2025-03-16] MEDS ORDERED: Dextrose 50% Abboject 50 ML SYRINGE SLOW IVP PRN (18:47)
[2025-03-16] MEDS ORDERED: hydrALAZINE 20 MG/ML VIAL SLOW IVP PRN (18:47)
[2025-03-16] MEDS: Enoxaparin 40 MG (0.4 mL) SYRINGE SC SCH (21:47)
[2025-03-17 05:54] LABS: #Basophils 0.12 10x3/uL (0.0-0.2); #Eosinophils 0.80 10x3/uL (0.0-0.7); #Monocytes 1.22 10x3/uL (0.11-0.59); #Neutrophils 6.75 10x3/uL (1.40-6.50); %Basophils 1.2 % (0.0-1.0); %Eosinophils 7.9 % (0.0-10.0); %Lymphocytes 12.1 % (21.0-51.0); %Monocytes 12.0 % (0.0-10.0); %Neutrophils 66.6 % (42.0-75.0); Hematocrit 32.7 % (42.0-52.0); Hemoglobin 9.8 g/dL (14.0-18.0); Mean Corpuscular Hemoglobin 27.6 pg (27.0-31.0); Mean Corpuscular Volume 92.1 fL (78.0-98.0); Platelet Count 182 10x3/uL (130-400); Red Blood Cell (RBC) Count 3.55 mill/uL (4.70-6.10); White Blood Cell (WBC) Count 10.14 10x3/uL (4.8-10.8)
[2025-03-17 06:17] LABS: Anion Gap 14 mmol/L (10-20); BUN (Urea Nitrogen) 32 mg/dL (8.9-20.6); Calc. Creatinine Clearance 57 mL/min (70-130); Calcium 8.5 mg/dL (7.8-10.44); Carbon Dioxide 24 mmol/L (22-29); Chloride 106 mmol/L (98-107); Glucose 102 mg/dL (70-105); Potassium 5.6 mmol/L (3.5-5.1); Sodium 138 mmol/L (136-145)
[2025-03-17] MEDS: Calcium Gluc 4.6 MEQ/10 ML (100 MG/ML) SLOW IVP ONE (09:19)
[2025-03-17] MEDS: Pantoprazole 40 MG VIAL IVP SCH (09:26)
[2025-03-17] MEDS: CALCIUM GLUC 1 GM/NS 50 ML 1 GM in Premix 1 BAG IVPB SCH (09:26)
[2025-03-17 10:33] LABS: Potassium 5.4 mmol/L (3.5-5.1)
[2025-03-17] MEDS ORDERED: Rocuronium Bromide 10 MG/ML (10ML VIAL) ONE (11:17)
[2025-03-17] MEDS ORDERED: Lidocaine 1% PF 5 ML VIAL ONE (11:17)
[2025-03-17] MEDS ORDERED: Bupivacaine 0.25% HCL 30 ML VIAL ONE (11:40)
[2025-03-17] MEDS ORDERED: Etomidate 40 MG (20 mL) VIAL ONE (12:02)
[2025-03-17] MEDS ORDERED: fentaNYL PF 100 MCG/2 ML SYRINGE ONE (12:03)
[2025-03-17] MEDS ORDERED: Ketamine In 0.9 % NaCl 50 MG/5 ML SYRINGE ONE (12:03)
[2025-03-17] MEDS ORDERED: Lidocaine 4% Topical Sol 50 ML BOT ONE (12:08)
[2025-03-17] MEDS ORDERED: CEFAZOLIN 2 GM VIAL ONE (12:08)
[2025-03-17] MEDS ORDERED: PROPOFOL 200 MG/20 ML VIAL ONE (12:21)
[2025-03-17] MEDS ORDERED: PHENYLEPHRINE-NS 100 MCG/ML 10 ML SYRINGE ONE (12:35)
[2025-03-17] MEDS ORDERED: SUGAMMADEX SODIUM 200 MG/2 ML VIAL ONE (13:03)
[2025-03-17] MEDS ORDERED: Ondansetron PF 4 MG/2 ML Vial ONE (13:03)
[2025-03-17] MEDS: Acetaminophen 500 MG TAB PO SCH (20:41)
[2025-03-18 06:37] LABS: #Basophils 0.03 10x3/uL (0.0-0.2); #Eosinophils 0.03 10x3/uL (0.0-0.7); #Monocytes 1.10 10x3/uL (0.11-0.59); #Neutrophils 7.50 10x3/uL (1.40-6.50); %Basophils 0.3 % (0.0-1.0); %Eosinophils 0.3 % (0.0-10.0); %Lymphocytes 7.2 % (21.0-51.0); %Monocytes 11.8 % (0.0-10.0); %Neutrophils 80.2 % (42.0-75.0); Hematocrit 31.2 % (42.0-52.0); Hemoglobin 9.1 g/dL (14.0-18.0); Mean Corpuscular Hemoglobin 27.2 pg (27.0-31.0); Mean Corpuscular Volume 93.1 fL (78.0-98.0); Platelet Count 189 10x3/uL (130-400); Red Blood Cell (RBC) Count 3.35 mill/uL (4.70-6.10); White Blood Cell (WBC) Count 9.35 10x3/uL (4.8-10.8)
[2025-03-18 06:58] LABS: Anion Gap 13 mmol/L (10-20); BUN (Urea Nitrogen) 33 mg/dL (8.9-20.6); Calc. Creatinine Clearance 47 mL/min (70-130); Calcium 8.3 mg/dL (7.8-10.44); Carbon Dioxide 22 mmol/L (22-29); Chloride 107 mmol/L (98-107); Glucose 141 mg/dL (70-105); Potassium 5.4 mmol/L (3.5-5.1); Sodium 137 mmol/L (136-145)
[2025-03-19] MEDS: Pantoprazole 40 MG DR.TAB PO SCH (08:44)
[2025-03-19 08:52] VITALS: BP 156/92; TEMP 98.6
== END 2025-03-19 11:36 | disposition home or self-care (01) | DRG 355 ==
LOC: ERS 14:29 → SURG B 18:09
PROVIDERS: ADMIT Surgery; ATTEND Surgery
PROC: 0DH67UZ Insertion of Feeding Device into Stomach, Via Natural or Artificial Opening (ICD-10-PCS; 2025-03-16)
PROC: 0WUF4JZ Supplement Abdominal Wall with Synthetic Substitute, Percutaneous Endoscopic Approach (ICD-10-PCS; principal; 2025-03-17)
PROC: 8E0W4CZ Robotic Assisted Procedure of Trunk Region, Percutaneous Endoscopic Approach (ICD-10-PCS; 2025-03-17)
DX: K43.0 Incisional hernia with obstruction, without gangrene (principal); E78.5 Hyperlipidemia, unspecified; J45.909 Unspecified asthma, uncomplicated; E11.22 Type 2 diabetes mellitus with diabetic chronic kidney disease; N18.9 Chronic kidney disease, unspecified; G47.30 Sleep apnea, unspecified; I48.91 Unspecified atrial fibrillation; F17.200 Nicotine dependence, unspecified, uncomplicated; I12.9 Hypertensive chronic kidney disease with stage 1 through stage 4 chronic kidney disease, or unspecified chronic kidney disease; Z90.49 Acquired absence of other specified parts of digestive tract; Z91.0110 Allergy to milk products, unspecified; Z98.890 Other specified postprocedural states; Z87.442 Personal history of urinary calculi
CPT/HCPCS: 36415; 36416; 43752; 71045; 74018; 74176; 80048; 80053; 83690; 85025; 86141; 86850; 86870; 86900; 86901; 86905; 86922; 88304; 96361; 96374; 96375; 96376; 97139; A4314; C1781; C1889; G0378; J0169; J0613; J0665; J1100; J1171; J1650; J2270; J2405; J2470; J2704; J3010; J3490; J7030; P9045; S2900

== ENCOUNTER 2025-05-02 14:18 | Outpatient (CLI) | payer BC ==
[2025-05-02 15:21] LABS: Hematocrit 33.8 % (42.0-52.0); Hemoglobin 10.0 g/dL (14.0-18.0); Mean Corpuscular Hemoglobin 27.9 pg (27.0-31.0); Mean Corpuscular Volume 94.2 fL (78.0-98.0); Platelet Count 304 10x3/uL (130-400); Red Blood Cell (RBC) Count 3.59 mill/uL (4.70-6.10); White Blood Cell (WBC) Count 9.32 10x3/uL (4.8-10.8)
[2025-05-02 15:35] LABS: ALT (SGPT) 21 U/L (Less than 45); AST (SGOT) 25 U/L (11-34); Albumin 2.9 g/dL (3.1-4.5); Alkaline Phosphatase 94 U/L (40-110); Anion Gap 14 mmol/L (10-20); BUN (Urea Nitrogen) 25 mg/dL (8.9-20.6); Bilirubin, Total 0.2 mg/dL (0.3-1.2); Calc. Creatinine Clearance 0 mL/min (70-130); Calcium 8.3 mg/dL (7.8-10.44); Carbon Dioxide 24 mmol/L (22-29); Chloride 108 mmol/L (98-107); Globulin 3.7 g/dL (2.4-3.5); Glucose 117 mg/dL (70-105); Potassium 4.5 mmol/L (3.5-5.1); Sodium 141 mmol/L (136-145)
[2025-05-02 15:42] LABS: INR-International Normal Ratio 1.1; PTT 26.0 sec (22.9-36.1); Prothrombin Time 14.6 sec (12.0-14.7)
[2025-05-02 17:31] LABS: Anisocytosis SLIGHT = 6-15 cells HPF (0-5); Burr Cells SLIGHT = 2-5 cells HPF (0-1); Macrocytosis SLIGHT = 6-15 cells HPF (0-5); Ovalocytes SLIGHT = 2-5 cells HPF (0-1); Platelet Adequacy Comment Platelets Normal; Polychromasia SLIGHT = 2-3 cells HPF (0-2); Smudge Cells 3.0 %
== END 2025-05-02 14:19 | disposition home or self-care (01) ==
LOC: LABBT 14:18
PROVIDERS: ATTEND Internal Medicine Cardiovascular Disease
DX: Z01.818 Encounter for other preprocedural examination (principal); I48.0 Paroxysmal atrial fibrillation
CPT/HCPCS: 80053; 85025; 85610; 85730; 86850; 86870; 86900; 86901; 93005; 93010